=== PATIENT | male | born 1955 | race Caucasian/White ===

== ENCOUNTER 2017-05-29 14:23 | Emergency (ER) | payer SELFPAY ==
[~2017-05-29] VITALS: Ht 171.4 cm; Wt 54.5 kg
[2017-05-29 14:24] VITALS: BP 126/77
== END 2017-05-29 17:53 | disposition left against medical advice (07) ==
LOC: M ED 14:23
DX: R10.9 Unspecified abdominal pain (principal); Z53.21 Procedure and treatment not carried out due to patient leaving prior to being seen by health care provider

== ENCOUNTER 2017-06-01 21:40 | Emergency (ER) | payer OTHER, SELFPAY ==
[~2017-06-01] VITALS: Ht 170.2 cm; Wt 56.8 kg
[2017-06-01] MEDS ORDERED: MORPHINE 4 MG/ML 1ML SYRINGE IV PRN (23:30)
[2017-06-01] MEDS ORDERED: ONDANSETRON 4MG/2ML VIAL (J2405) IV ONE (23:30)
[2017-06-01] MEDS ORDERED: NS 1,000 ML IV ONE (23:30)
[2017-06-02 00:17] LABS: BASO # 0.1 K/mm3 (0.0-0.2); BASO % 0.7 % (0.0-1.0); EOS # 0.2 K/mm3 (0.0-0.50); EOS % 2.2 % (0.0-3.0); LARGE UNSTAINED CELL # 0.2 K/mm3 (0.0-0.4); LARGE UNSTAINED CELL % 2.4 % (0.0-4.0); LYMPH # 2.9 K/mm3 (1.5-4.5); LYMPH % 32.6 % (24.0-44.0); MEAN CORPUSCULAR HEMOGLOBIN 35.2 pg (27.0-33.0); MEAN CORPUSCULAR HGB CONC 36.4 g/dl (32.0-36.5); MEAN CORPUSCULAR VOLUME 96.7 fl (80.0-96.0); MONO # 0.5 K/mm3 (0.0-0.8); MONO % 5.7 % (0.0-5.0); NEUTROPHILS % 56.3 % (36.0-66.0); PLATELET COUNT, AUTOMATED 215 k/mm3 (150-450); RED CELL DISTRIBUTION WIDTH 14.5 % (11.5-14.5); WHITE BLOOD COUNT 8.9 K/mm3 (4.0-10.0)
[2017-06-02 00:23] LABS: INR 0.94
[2017-06-02 00:54] LABS: ALBUMIN 3.2 GM/DL (3.2-5.2); ALKALINE PHOSPHATASE 92 U/L (45-117); ALT/SGPT 29 U/L (12-78); ANION GAP 7 MEQ/L (8-16); AST/SGOT 44 U/L (15-37); BILIRUBIN,DIRECT < 0.1 MG/DL (0.0-0.2); BILIRUBIN,TOTAL 0.2 MG/DL (0.2-1.0); BLOOD UREA NITROGEN 8 MG/DL (7-18); CALCIUM LEVEL 7.4 MG/DL (8.8-10.2); CARBON DIOXIDE LEVEL 29 MEQ/L (21-32); CHLORIDE LEVEL 108 MEQ/L (98-107); CREATININE FOR GFR 0.52 MG/DL (0.70-1.30); GLOMERULAR FILTRATION RATE > 60.0 (>49); GLUCOSE, FASTING 79 MG/DL (80-110); POTASSIUM SERUM 3.2 MEQ/L (3.5-5.1); SODIUM LEVEL 144 MEQ/L (136-145); TOTAL PROTEIN 6.1 GM/DL (6.4-8.2)
[2017-06-02] MEDS ORDERED: ISOVUE-370 76% 100ML VIAL (Q9967) As Ordered ONE (00:58)
--- NOTE | 2017-06-02 02:10 | REPUSA ---
CLINICAL HISTORY: Abdominal pain. TECHNIQUE: Multiple axial, sagittal and coronal CT images were obtained through the abdomen and pelvi s after administration of intravenous contrast material. COMMENTS: Diffuse thickening and enhancement of the stomach which is fluid filled. Diffuse thickening and enhancement of the small bowels which are fluid-filled. Diffuse thickening and enhancement of the colon which is fluid-filled. The liver is of uniform attenuation without mass or defect. There is no intra or extrahepatic biliary ductal dilatation. The spleen is normal. The gallbladder is within normal limits. The pancreas is of normal contour and attenuation characteristics. There is no evidence of adrenal mass. Both kidneys demonstrate prompt and equal nephrograms. The kidneys are normal in size, shape and conf iguration. There is no evidence of renal or ureteral mass. No renal or ureteral calculi are identifie d. There is no hydroureter or hydronephrosis. No evidence for appendicitis. No evidence for small or large bowel obstruction. There is no evidence of abdominal ascites or lympha denopathy. There is no evidence of intrinsic or extrinsic bladder mass. There is no pelvic ascites or lymphadeno vijaya. Distended bladder. Images of the lung bases show no evidence of pleural or parenchymal mass. There are no pleural effusi ons. The bony structures are free of lytic or blastic lesions. Multilevel degenerative changes are seen in volving the thoracolumbar spine. Scattered calcifications are seen involving the aorta and major branches compatible with atherosclero sis. IMPRESSION: Gastroenteritis. Colitis. Thank you for your kind referral of this patient.
[2017-06-02 04:50] VITALS: BP 150/85
[2017-06-02] MEDS ORDERED: PERC5TAB12 PO (05:08)
[2017-06-02] MEDS ORDERED: ZOFR4TAB3 PO (05:08)
[2017-06-02] MEDS ORDERED: OXYCODONE/APAP 5MG/325MG(BULK FOR ED) 1 TABLET PO ONE (05:15)
== END 2017-06-02 05:32 | disposition home or self-care (01) ==
LOC: M ED 21:40
DX: K52.9 Noninfective gastroenteritis and colitis, unspecified (principal); F17.200 Nicotine dependence, unspecified, uncomplicated; F10.10 Alcohol abuse, uncomplicated
CPT/HCPCS: 74177; 80048; 80076; 80320; 81001; 82550; 82553; 83605; 83690; 85025; 85610; 85730; 87040; 87077; 87086; 93041; 96374; 96375; 99285; J2405; Q9967

== ENCOUNTER 2018-02-23 18:50 | Emergency (ER) | payer OTHER ==
[2018-02-23] MEDS: NS 500 ML IV (19:15)
[2018-02-23 19:26] LABS: BASO # 0.1 10^3/uL (0.0-0.2); BASO % 0.7 % (0.0-1.0); EOS # 0.1 10^3/uL (0.0-0.50); EOS % 1.9 % (0.0-3.0); HEMATOCRIT 37.6 % (42.0-52.0); HEMOGLOBIN 13.1 g/dl (13.5-17.5); IMMATURE GRANULOCYTE % 0.1 % (0-3.0); LYMPH # 3.9 10^3/uL (1.5-4.5); LYMPH % 53.8 % (24.0-44.0); MEAN CORPUSCULAR HEMOGLOBIN 34.1 pg (27.0-33.0); MEAN CORPUSCULAR HGB CONC 34.8 g/dl (32.0-36.5); MEAN CORPUSCULAR VOLUME 97.9 fl (80.0-96.0); MONO # 0.8 10^3/uL (0.0-0.8); MONO % 10.3 % (0.0-5.0); NEUTROPHILS # 2.4 10^3/uL (1.8-7.7); NEUTROPHILS % 33.2 % (36.0-66.0); PLATELET COUNT, AUTOMATED 267 10^3/uL (150-450); RED BLOOD COUNT 3.84 10^6/uL (4.30-6.10); RED CELL DISTRIBUTION WIDTH 14.6 % (11.5-14.5); WHITE BLOOD COUNT 7.3 10^3/uL (4.0-10.0)
[2018-02-23 19:39] LABS: ANION GAP 12 MEQ/L (8-16); BLOOD UREA NITROGEN 12 MG/DL (7-18); CALCIUM LEVEL 7.6 MG/DL (8.8-10.2); CARBON DIOXIDE LEVEL 25 MEQ/L (21-32); CHLORIDE LEVEL 110 MEQ/L (98-107); CREATININE FOR GFR 0.74 MG/DL (0.70-1.30); ETHYL ALCOHOL (ETHANOL) 0.353 % (0.000-0.010); GLOMERULAR FILTRATION RATE > 60.0 (>49); GLUCOSE, FASTING 80 MG/DL (70-100); POTASSIUM SERUM 3.7 MEQ/L (3.5-5.1); SODIUM LEVEL 147 MEQ/L (136-145)
== END 2018-02-23 20:48 | disposition left against medical advice (07) ==
LOC: M ED 18:50
DX: F10.129 Alcohol abuse with intoxication, unspecified (principal); W19.XXXA Unspecified fall, initial encounter; Y92.410 Unspecified street and highway as the place of occurrence of the external cause; Y93.89 Activity, other specified; Y99.9 Unspecified external cause status; Z53.21 Procedure and treatment not carried out due to patient leaving prior to being seen by health care provider
CPT/HCPCS: 73564

== ENCOUNTER 2018-06-30 20:16 | Emergency (ER) | payer OTHER ==
[2018-06-30] MEDS: IBUPROFEN 400 MG TAB PO (20:48)
== END 2018-06-30 21:42 | disposition home or self-care (01) ==
LOC: M ED 20:16
DX: S90.121A Contusion of right lesser toe(s) without damage to nail, initial encounter (principal); W22.8XXA Striking against or struck by other objects, initial encounter; Y92.018 Other place in single-family (private) house as the place of occurrence of the external cause; F10.229 Alcohol dependence with intoxication, unspecified
CPT/HCPCS: 73630

== ENCOUNTER 2018-11-01 13:58 | Emergency (ER) | payer OTHER ==
[~2018-11-01] VITALS: Ht 170.2 cm; Wt 55.0 kg
[~2018-11-01 13:58] MED LIST: PERC5TAB12 PO; ZOFR4TAB14 PO
[2018-11-01 14:29] LABS: BASO % 0.3 % (0.0-1.0); EOS # 0.1 10^3/uL (0.0-0.50); EOS % 1.1 % (0.0-3.0); HEMATOCRIT 40.8 % (42.0-52.0); HEMOGLOBIN 13.9 g/dl (13.5-17.5); LYMPH # 1.9 10^3/uL (1.5-4.5); LYMPH % 30.4 % (24.0-44.0); MEAN CORPUSCULAR HEMOGLOBIN 34.5 pg (27.0-33.0); MEAN CORPUSCULAR HGB CONC 34.1 g/dl (32.0-36.5); MEAN CORPUSCULAR VOLUME 101.2 fl (80.0-96.0); MONO # 0.7 10^3/uL (0.0-0.8); NEUTROPHILS # 3.5 10^3/uL (1.8-7.7); NEUTROPHILS % 56.9 % (36.0-66.0); PLATELET COUNT, AUTOMATED 258 10^3/uL (150-450); RED BLOOD COUNT 4.03 10^6/uL (4.30-6.10); WHITE BLOOD COUNT 6.2 10^3/uL (4.0-10.0)
--- NOTE | 2018-11-01 14:43 | REP ---
CT Head without contrast HISTORY: Infarction COMPARISON: 02/23/2018 Areas of decreased attenuation are present in the periventricular white matter. This represents small-vessel ischemic disease. There is no intraparenchymal hemorrhage, acute infarct, mass or midline shift. The ventricular system and cortical sulci as well as subarachnoid space in the posterior fossa are dilated consistent with minimal volume loss. There is no extra cerebral collection. There is no fracture. The visualized sinuses are clear. IMPRESSION: 1. Small vessel ischemic disease. 2. Minimal volume loss. Electronically Signed by Justino Martinez MD 11/01/2018 02:34 P
[2018-11-01 14:44] LABS: INR 0.94; PARTIAL THROMBOPLASTIN TIME 29.8 SECONDS (25.4-37.6); PROTHROMBIN TIME 12.7 SECONDS (12.1-14.4)
--- NOTE | 2018-11-01 14:46 | REP ---
Chest one-view HISTORY: Infarction Comparison: None The lungs are hyperinflated. Left apical pleural thickening is present. The right lung is clear. The heart is normal in size. The pulmonary vasculature is normal in appearance. There are old right rib fractures. Impression: No acute disease. Electronically Signed by Justino Martinez MD 11/01/2018 02:37 P
[2018-11-01 15:04] LABS: BLOOD UREA NITROGEN 7 MG/DL (7-18); CALCIUM LEVEL 8.3 MG/DL (8.8-10.2); CARBON DIOXIDE LEVEL 29 MEQ/L (21-32); CHLORIDE LEVEL 104 MEQ/L (98-107); CK-MB VALUE MASS < 1.0 NG/ML (<3.6); CPK CREATINE PHOSPHOKINASE 77 U/L (39-308); CREATININE FOR GFR 0.76 MG/DL (0.70-1.30); FREE T4 0.95 NG/DL (0.76-1.46); GLOMERULAR FILTRATION RATE > 60.0 (>49); GLUCOSE, FASTING 99 MG/DL (70-100); MAGNESIUM LEVEL 2.1 MG/DL (1.8-2.4); PHOSPHORUS LEVEL 2.9 MG/DL (2.5-4.9); POTASSIUM SERUM 3.3 MEQ/L (3.5-5.1); SODIUM LEVEL 138 MEQ/L (136-145); TROPONIN I < 0.02 NG/ML (< 0.10)
[2018-11-01] MEDS ORDERED: POTASSIUM CHLORIDE 10 MEQ SR TABLET PO ONE (15:30)
--- NOTE | 2018-11-01 17:44 | ECGEPIP ---
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
--- NOTE | 2018-11-01 18:02 | REPVR ---
EXAM: MR Head Without Contrast EXAM DATE/TIME: 11/01/2018 5:52 PM CLINICAL HISTORY: 63 years old, male; Signs and symptoms; Numbness / parasthesia; Right; Patient HX: RT side face and RT pinky numbness; Additional info: CVA TECHNIQUE: MR of the head without contrast. COMPARISON: CT Head without contrast 11/01/2018 2:18 PM FINDINGS: No abnormal restriction of diffusion to indicate acute CVA. Midline structures and cerebellar tonsillar position appear normal. Ventricles, cisterns and sulci are symmetrically prominent. No intracranial mass, midline shift or abnormal extra-axial fluid. No acute intracranial hemorrhage. Mild pattern of increased T2 and flair signal in supratentorial white matter. Optic chiasm and pituitary infundibulum appear normal. Normal vascular flow voids in major intracranial arteries and dural venous sinuses. Paranasal sinuses are clear. Mastoid air cells are normally aerated. Optic globes and orbits are unremarkable. IMPRESSION: No acute intracranial abnormality. Mild atrophy and mild presumed symmetric chronic microangiopathic supratentorial white matter change Electronically signed by: Randy Black On 11/01/2018 18:01:45 PM
--- NOTE | 2018-11-01 18:02 | REPVR ---
EXAM: MR Angiogram Head Without Contrast, Arteries EXAM DATE/TIME: 11/01/2018 5:52 PM CLINICAL HISTORY: 63 years old, male; Signs and symptoms; Numbness; Additional info: CVA TECHNIQUE: MR angiogram head without contrast. Exam focused on the arteries. MIP reconstructed images were created and reviewed. COMPARISON: CT Head without contrast 11/01/2018 2:18 PM FINDINGS: Anterior circulation: Normal flow signal and luminal caliber in the petrous, cavernous and supraclinoid internal carotid arteries. Normal appearance of the anterior cerebral artery branches and middle cerebral artery branches through the MCA trifurcations. No occlusion, high-grade focal stenosis or dissection. No aneurysm. Left A1 segment is diminutive and the normal left anterior cerebral artery is supplied predominantly by an anterior communicating artery Posterior circulation: Normal distal vertebral arteries, with patent normal caliber basilar artery, and normal superior cerebellar and posterior cerebral arteries. No occlusion, high-grade stenosis or aneurysm. IMPRESSION: Unremarkable MR angiogram of the [place] and intracranial vertebrobasilar system. No hemodynamically significant intracranial large vessel disease Electronically signed by: Randy Black On 11/01/2018 18:02:31 PM
[2018-11-01 18:18] VITALS: BP 145/78
== END 2018-11-01 18:34 | disposition home or self-care (01) ==
LOC: M ED 13:58
DX: R20.2 Paresthesia of skin (principal); I67.82 Cerebral ischemia; F17.200 Nicotine dependence, unspecified, uncomplicated

== ENCOUNTER 2018-12-07 17:50 | Emergency (ER) | payer OTHER ==
--- NOTE | 2018-12-07 18:27 | REP ---
Clinical: Trauma/fall. Comparison: 11/01/2018 . Findings: Age-related atrophy and microvascular ischemic changes are appreciated. The ventricles and sulci are symmetric. Garcia-white differentiation is maintained. There is no evidence for acute intracranial hemorrhage, mass/mass effect, pathology or infarction. No extra-axial fluid collection. Calvarium is intact. Paranasal sinuses and mastoid air cells are clear. Impression: Age related atrophy and microvascular ischemic changes. No acute intracranial hemorrhage, infarction, or mass/mass effect. Electronically Signed by Shar Carson MD 12/07/2018 06:18 P
--- NOTE | 2018-12-07 18:28 | REP ---
Clinical: Trauma/fall. Technique: Axial noncontrast images through the facial bones with coronal and sagittal re-formations. Findings: There is a scalp hematoma/contusion overlying the frontal bone. The osseous structures including bilateral zygomatic arches, mandible and temporomandibular joints appear intact and symmetric. No obvious acute fracture identified. The sinuses are well aerated and clear and without fluid levels to suggest occult injury. Mild angulation/deviation to the nasal bones and nasal septum appears chronic and without definite acute fracture although clinical correlation may be warranted. The bilateral orbits are symmetric, intact and normal. Impression: 1. Small scalp hematoma/contusion overlying the right frontal bone. 2. No obvious acute fracture or trauma/injury appreciated. 3. Subtle deviation of the nasal septum and nasal bones is likely chronic and without obvious acute fracture. Electronically Signed by Shar Carson MD 12/07/2018 06:20 P
--- NOTE | 2018-12-07 18:30 | REP ---
Clinical: Trauma/fall. Technique: Axial noncontrast images from the skull base to the thoracic inlet with coronal and sagittal re-formations. Findings: Alignment and lordosis maintained. No acute fracture / compression injury or subluxation is appreciated. Moderate/advanced multilevel degenerative disc osteophyte complexes are appreciated. The spinal canal is patent. The posterior elements and spinous processes are intact. The paravertebral soft tissues are within normal limits. Impression: Moderate/advanced multilevel degenerative changes. No acute fracture / compression injury or subluxation appreciated Electronically Signed by Shar Carson MD 12/07/2018 06:21 P
[2018-12-07] MEDS ORDERED: ZOLP10TA2 (18:47)
[2018-12-07] MEDS ORDERED: ESCI10TA2 (18:47)
[2018-12-07 19:46] VITALS: BP 114/63
== END 2018-12-07 19:47 | disposition home or self-care (01) ==
LOC: M ED 17:50 → EDBD 17:50 → M ED 19:47
DX: S01.91XA Laceration without foreign body of unspecified part of head, initial encounter (principal); S00.83XA Contusion of other part of head, initial encounter; F10.129 Alcohol abuse with intoxication, unspecified; W19.XXXA Unspecified fall, initial encounter; Y92.410 Unspecified street and highway as the place of occurrence of the external cause; Y93.9 Activity, unspecified; Y99.9 Unspecified external cause status; J34.2 Deviated nasal septum; M51.9 Unspecified thoracic, thoracolumbar and lumbosacral intervertebral disc disorder; Z72.0 Tobacco use; Z79.899 Other long term (current) drug therapy

== ENCOUNTER 2018-12-27 17:48 | Inpatient (IN) | payer OTHER ==
[~2018-12-27 17:48] MED LIST changes: +ESCI10TA2; +ZOLP10TA2
[2018-12-27] MEDS ORDERED: IPRATROPIUM 0.5MG/ALBUTEROL 2.5MG INH SOL UD 3ML (DUONEB)(J7620) NEB PRN (18:00)
[2018-12-27] MEDS ORDERED: dexameTHASONE 20 MG/5 ML VIAL (J1100) IV ONE (18:15)
--- NOTE | 2018-12-27 18:42 | REP ---
Portable chest, 06:27 p.m., single AP view, the patient is upright: Comparison is 11/01/2018. The lung farrar are clear. The cardiac size is normal. The caryn, mediastinum, and skeletal structures are unremarkable. Impression: Negative portable chest. There is no interval change. Electronically Signed by Iam Taylor MD 12/27/2018 06:34 P
[2018-12-27 19:03] LABS: BASO # 0.1 10^3/uL (0.0-0.2); BASO % 0.4 % (0.0-1.0); EOS % 0.2 % (0.0-3.0); HEMATOCRIT 36.5 % (42.0-52.0); HEMOGLOBIN 12.9 g/dl (13.5-17.5); LYMPH # 1.5 10^3/uL (1.5-4.5); LYMPH % 13.1 % (24.0-44.0); MEAN CORPUSCULAR HEMOGLOBIN 36.4 pg (27.0-33.0); MEAN CORPUSCULAR HGB CONC 35.3 g/dl (32.0-36.5); MEAN CORPUSCULAR VOLUME 103.1 fl (80.0-96.0); MONO # 1.3 10^3/uL (0.0-0.8); MONO % 11.8 % (0.0-5.0); NEUTROPHILS # 8.2 10^3/uL (1.8-7.7); NEUTROPHILS % 73.7 % (36.0-66.0); PLATELET COUNT, AUTOMATED 408 10^3/uL (150-450); RED BLOOD COUNT 3.54 10^6/uL (4.30-6.10); WHITE BLOOD COUNT 11.1 10^3/uL (4.0-10.0)
[2018-12-27 19:05] LABS: BLOOD UREA NITROGEN 13 MG/DL (7-18); CALCIUM LEVEL 8.3 MG/DL (8.8-10.2); CARBON DIOXIDE LEVEL 32 MEQ/L (21-32); CHLORIDE LEVEL 95 MEQ/L (98-107); CK-MB VALUE MASS < 1.0 NG/ML (<3.6); CPK CREATINE PHOSPHOKINASE 88 U/L (39-308); CREATININE FOR GFR 0.66 MG/DL (0.70-1.30); GLOMERULAR FILTRATION RATE > 60.0 (>49); GLUCOSE, FASTING 137 MG/DL (70-100); MB/CK RELATIVE INDEX 1.14 (< OR =4); POTASSIUM SERUM 3.7 MEQ/L (3.5-5.1); SODIUM LEVEL 135 MEQ/L (136-145); TROPONIN I < 0.02 NG/ML (< 0.10)
[2018-12-27] MEDS ORDERED: NS 500 ML IV ONE ×2 (20:00→21:00)
[2018-12-27] MEDS ORDERED: PIPERACILLIN/TAZOBACTAM SOD 3.375 GM in D5W MINI-BAG PLUS 50 ML IV ONE (20:30)
[2018-12-27] MEDS: ENOXAPARIN 40 MG/0.4 ML SYRINGE (J1650) SC SCH (21:00)
[2018-12-27] MEDS ORDERED: NS 1,000 ML IV ONE (21:00)
[2018-12-27] MEDS ORDERED: ESCI20TA PO (21:10)
[2018-12-27] MEDS ORDERED: cefTRIAXone SOD 1 GM in D5W MINI-BAG PLUS 50 ML IV SCH (23:00)
[2018-12-27] MEDS: NS 1,000 ML IV SCH (23:11)
--- NOTE | 2018-12-27 23:55 | HPEPDOC ---
General Date of Admission Dec 27, 2018 at 20:57 Chief Complaint The patient is a 63-year-old male admitted with a reason for visit of Sepsis. History of Present Illness 63-year-old male with past medical history of depression presents to the ER with a chief complaint of increased cough, shortness of breath over the last 5 days. The patient states that he has been feeling increasingly lethargic and tired with associated nonproductive cough. He also notes having subjective fevers at home. He denies any complaints of lightheadedness, dizziness, chest pain, palpitations, abdominal pain, orthopnea, PND, lower extremity swelling or any nausea/vomiting/diarrhea. In the ER, the patient was noted to be hypotensive and hypoxic requiring supplemental oxygen. In addition, lab work revealed leukocytosis and lactic acidosis. The patient will be admitted under the hospitalist service for further evaluation and management. Home Medications Scheduled Escitalopram Oxalate (Escitalopram Oxalate) 20 Mg Tablet, 20 MG PO DAILY, (Reported) Allergies Coded Allergies: No Known Allergies (Unverified , 06/30/18) Past Medical History Medical History As noted in HPI. Social History * Smoker: current smoker (has smoked 1 pack per day of tobacco for 50 years) Alcohol: occationally Drugs: denies Review of Systems Other systems 10 point review of systems negative unless otherwise specified in HPI. Physical Examination General Exam: Positive: Alert, Cooperative, Mild Distress (2/2 lethargy, weakness) ENT Exam: Positive: Atraumatic, Mucous membr. moist/pink Chest Exam: Positive: Diminished Heart Exam: Positive: Rate Normal, Normal S1, Normal S2 Abdomen Exam: Positive: Soft; Negative: Tenderness Extremity Exam: Negative: Tenderness, Swelling Psych Exam: Positive: Oriented x 3 Vital Signs Vital Signs Date Time Temp Pulse Resp B/P (MAP) Pulse Ox O2 Delivery O2 Flow Rate FiO2 12/27/18 23:00 66 119/60 (79) 93 Nasal Cannula 2.0 12/27/18 19:15 20 12/27/18 17:54 97.6 Laboratory Data Labs 24H Laboratory Tests 2 12/27/18 18:13: Immature Granulocyte % (Auto) 0.8, White Blood Count 11.1H, Red Blood Count 3.54L, Hemoglobin 12.9L, Hematocrit 36.5L, Mean Corpuscular Volume 103.1H, Mean Corpuscular Hemoglobin 36.4H, Mean Corpuscular Hemoglobin Concent 35.3, Red Cell Distribution Width 14.0, Platelet Count 408, Neutrophils (%) (Auto) 73.7H, Lymphocytes (%) (Auto) 13.1L, Monocytes (%) (Auto) 11.8H, Eosinophils (%) (Auto) 0.2, Basophils (%) (Auto) 0.4, Neutrophils # (Auto) 8.2H, Lymphocytes # (Auto) 1.5, Monocytes # (Auto) 1.3H, Eosinophils # (Auto) 0.0, Basophils # (Auto) 0.1, Nucleated Red Blood Cells % (auto) 0.0, Anion Gap 8, Glomerular Filtration Rate > 60.0, Lactic Acid Level 2.3*H, Blood Urea Nitrogen 13, Creatinine 0.66L, Sodium Level 135L, Potassium Level 3.7, Chloride Level 95L, Carbon Dioxide Level 32, Calcium Level 8.3L, Total Creatine Kinase 88, Creatine Kinase MB < 1.0, Creatine Kinase MB Relative Index 1.14, Troponin I < 0.02 CBC/BMP Laboratory Tests 12/27/18 18:13 Red Blood Count 3.54 L, Mean Corpuscular Volume 103.1 H, Mean Corpuscular Hemoglobin 36.4 H, Mean Corpuscular Hemoglobin Concent 35.3, Red Cell Distribution Width 14.0, Neutrophils (%) (Auto) 73.7 H, Lymphocytes (%) (Auto) 13.1 L, Monocytes (%) (Auto) 11.8 H, Eosinophils (%) (Auto) 0.2, Basophils (%) (Auto) 0.4, Neutrophils # (Auto) 8.2 H, Lymphocytes # (Auto) 1.5, Monocytes # (Auto) 1.3 H, Eosinophils # (Auto) 0.0, Basophils # (Auto) 0.1, Calcium Level 8.3 L, Total Creatine Kinase 88 Microbiology Microbiology 12/27/18 Blood Culture, Received Pending 12/27/18 Blood Culture, Received Pending Plan / VTE VTE Prophylaxis Ordered?: Yes Plan Plan SOB, Weakness 2/2 Community Acquired Pneumonia CXR with no acute findings--this may be secondary to the patient being dehydrated and hypotensive on arrival. Clinically the patient appears to have signs/symptoms suggestive of PNA We will order a respiratory panel, pro-calcitonin level, and sputum culture Rocephin and Zithro ordered We will cont to monitor the patient Hypotension 2/2 Above Improved with IVF Hydration Lactic Acidosis 2/2 Above IVF Hydration ordered We will repeat a LA level Leukocytosis 2/2 Above We will f/u with a WBC in the AM Hypoxia 2/2 Above We will downtitrate supplemental oxygen as tolerated Depression Cont Citalopram DVT prophylaxis Lovenox subcutaneous Dispo--PT ordered for functional optimization TOÑITO LARSEN MD Dec 27, 2018 23:55
[2018-12-28] MEDS ORDERED: AZITHROMYCIN INJ 500 MG, VIAL MATE ADAPTER 1 EACH in D5W 250 ML IV SCH ×3
[2018-12-28] MEDS: NS 1,000 ML IV SCH (06:15)
[2018-12-28 07:31] LABS: ALT/SGPT 12 U/L (12-78); BILIRUBIN,TOTAL 0.2 MG/DL (0.2-1.0); BLOOD UREA NITROGEN 10 MG/DL (7-18); CALCIUM LEVEL 7.5 MG/DL (8.8-10.2); CARBON DIOXIDE LEVEL 29 MEQ/L (21-32); CHLORIDE LEVEL 105 MEQ/L (98-107); GLOMERULAR FILTRATION RATE > 60.0 (>49); GLUCOSE, FASTING 114 MG/DL (70-100); MAGNESIUM LEVEL 1.9 MG/DL (1.8-2.4); POTASSIUM SERUM 3.7 MEQ/L (3.5-5.1); SODIUM LEVEL 140 MEQ/L (136-145); TOTAL PROTEIN 6.3 GM/DL (6.4-8.2)
[2018-12-28 08:30] LABS: HEMATOCRIT 32.8 % (42.0-52.0); MEAN CORPUSCULAR HEMOGLOBIN 34.3 pg (27.0-33.0); MEAN CORPUSCULAR VOLUME 102.2 fl (80.0-96.0); PLATELET COUNT, AUTOMATED 359 10^3/uL (150-450); RED BLOOD COUNT 3.21 10^6/uL (4.30-6.10); WHITE BLOOD COUNT 7.5 10^3/uL (4.0-10.0)
[2018-12-28] MEDS ORDERED: ESCITALOPRAM OXALATE 10 MG TAB (LEXAPRO) PO ONE (08:30)
[2018-12-28] MEDS ORDERED: LEVALBUTEROL 1.25 MG/0.5 ML CONCENTRATE NEB NEB ONE (08:30)
[2018-12-28 08:40] LABS: MEAN CORPUSCULAR HGB CONC 33.5 g/dl (32.0-36.5)
[2018-12-28] MEDS ORDERED: ESCITALOPRAM OXALATE 10 MG TAB (LEXAPRO) PO SCH (09:00)
[2018-12-28] MEDS: LEVALBUTEROL 1.25 MG/0.5 ML CONCENTRATE NEB INH PRN (09:33)
[2018-12-28 11:38] VITALS: BP 144/48
[2018-12-28] MEDS: LEVALBUTEROL 1.25 MG/0.5 ML CONCENTRATE NEB INH SCH ×3 (12:17→21:12)
[2018-12-28] MEDS ORDERED: OSELTAMIVIR PHOSPHATE 75 MG CAP (TAMIFLU) PO ONE (12:30)
--- NOTE | 2018-12-28 12:38 | IPNPDOC ---
Date Seen The patient was seen on 12/28/18. Progress Note SUBJECTIVE: Pt still c/o SOLIZ, wheezing, SOB, myalgias, and requesting something to eat and his lexapro to be given. He denies fever, chills. (+) influenza on tamiflu and droplet precautions. CXR lungs are clear, no infiltrate. ceftriaxone and azithro discontinued. OBJECTIVE: PHYSICAL EXAMINATION: VITALS: PLS SEE BELOW General Exam: Positive: Alert, Cooperative, Mild Distress (2/2 lethargy, weakness) ENT Exam: Positive: Atraumatic, Mucous membr. moist/pink Chest Exam: Positive: Diminished Heart Exam: Positive: Rate Normal, Normal S1, Normal S2 Abdomen Exam: Positive: Soft; Negative: Tenderness Extremity Exam: Negative: Tenderness, Swelling Psych Exam: Positive: Oriented x 3 LABORATORY DATA, IMAGING STUDIES, MICROBIOLOGY: REVIEWED, PLS SEE BELOW ASSESSMENT AND PLAN: 63-year-old male with past medical history of depression presents to the ER with a chief complaint of increased cough, shortness of breath over the last 5 days. The patient states that he has been feeling increasingly lethargic and tired with associated nonproductive cough. He also notes having subjective fevers at home. He denies any complaints of lightheadedness, dizziness, chest pain, palpitations, abdominal pain, orthopnea, PND, lower extremity swelling or any nausea/vomiting/diarrhea. In the ER, the patient was noted to be hypotensive and hypoxic requiring supplemental oxygen. In addition, lab work revealed leukocytosis and lactic acidosis. The patient will be admitted under the hospitalist service for further evaluation and management. Acute Respiratory distress due to Influenza s/p ceftriaxone and azithromycin CXR with no acute findings discontinue o2 if o2sat>88% Influenza droplet precautions tamiflu x 5days supportive care Hypotension , resolved Improved with IVF Hydration due to influenza Lactic Acidosis ,resolved s/p IVF Hydration Acute copd exacerbation significant wheezing on exam q4hrs nebs xopenex solumedrol s/p ceftriaxone azithromycin. Depression Cont Citalopram DVT prophylaxis Lovenox subcutaneous Dispo--PT ordered for functional optimization VS, I&O, 24H, Fishbone Vital Signs/I&O Vital Signs Date Time Temp Pulse Resp B/P (MAP) Pulse Ox O2 Delivery O2 Flow Rate FiO2 12/28/18 11:38 96.3 71 18 144/48 (80) 94 1.0 4/20/19 11:25 Room Air I&O- Last 24 Hours up to 6 AM 12/28/18 06:00 Intake Total 2715 ml Output Total 450 ml Balance 2265 ml Laboratory Data 24H LABS Laboratory Tests 2 12/27/18 18:13: Immature Granulocyte % (Auto) 0.8, White Blood Count 11.1H, Red Blood Count 3.54L, Hemoglobin 12.9L, Hematocrit 36.5L, Mean Corpuscular Volume 103.1H, Mean Corpuscular Hemoglobin 36.4H, Mean Corpuscular Hemoglobin Concent 35.3, Red Cell Distribution Width 14.0, Platelet Count 408, Neutrophils (%) (Auto) 73.7H, Lymphocytes (%) (Auto) 13.1L, Monocytes (%) (Auto) 11.8H, Eosinophils (%) (Auto) 0.2, Basophils (%) (Auto) 0.4, Neutrophils # (Auto) 8.2H, Lymphocytes # (Auto) 1.5, Monocytes # (Auto) 1.3H, Eosinophils # (Auto) 0.0, Basophils # (Auto) 0.1, Nucleated Red Blood Cells % (auto) 0.0, Anion Gap 8, Glomerular Filtration Rate > 60.0, Lactic Acid Level 2.3*H, Blood Urea Nitrogen 13, Creatinine 0.66L, Sodium Level 135L, Potassium Level 3.7, Chloride Level 95L, Carbon Dioxide Level 32, Calcium Level 8.3L, Total Creatine Kinase 88, Creatine Kinase MB < 1.0, Creatine Kinase MB Relative Index 1.14, Troponin I < 0.02 12/28/18 00:02: Lactic Acid Followup at 4 Hours 0.8 12/28/18 06:39: Nucleated Red Blood Cells % (auto) 0.0, Anion Gap 6L, Glomerular Filtration Rate > 60.0, Blood Urea Nitrogen 10, Creatinine 0.50L, Sodium Level 140, Potassium Level 3.7, Chloride Level 105, Carbon Dioxide Level 29, Calcium Level 7.5L, Aspartate Amino Transf (AST/SGOT) 9, Alanine Aminotransferase (ALT/SGPT) 12, Alkaline Phosphatase 52, Total Bilirubin 0.2, Total Protein 6.3L, Albumin 2.0L, Magnesium Level 1.9, Albumin/Globulin Ratio 0.47L CBC/BMP Laboratory Tests 12/27/18 18:13 Red Blood Count 3.54 L, Mean Corpuscular Volume 103.1 H, Mean Corpuscular Hemoglobin 36.4 H, Mean Corpuscular Hemoglobin Concent 35.3, Red Cell Distribut ion Width 14.0, Neutrophils (%) (Auto) 73.7 H, Lymphocytes (%) (Auto) 13.1 L, Monocytes (%) (Auto) 11.8 H, Eosinophils (%) (Auto) 0.2, Basophils (%) (Auto) 0.4, Neutrophils # (Auto) 8.2 H, Lymphocytes # (Auto) 1.5, Monocytes # (Auto) 1.3 H, Eosinophils # (Auto) 0.0, Basophils # (Auto) 0.1, Calcium Level 8.3 L, Total Creatine Kinase 88 12/28/18 06:39 Red Blood Count 3.21 L, Mean Corpuscular Volume 102.2 H, Mean Corpuscular Hemoglobin 34.3 H, Mean Corpuscular Hemoglobin Concent 33.5, Red Cell Distribution Width 13.9, Calcium Level 7.5 L, Aspartate Amino Transf (AST/SGOT) 9, Alanine Aminotransferase (ALT/SGPT) 12, Alkaline Phosphatase 52, Total Bilirubin 0.2, Total Protein 6.3 L, Albumin 2.0 L Microbiology Microbiology 12/27/18 Blood Culture, Received Pending 12/27/18 Blood Culture, Received Pending 12/28/18 Respiratory Virus Panel (PCR) ([facility]) - Final, Complete INFLUENZA A (no subtype) SAURABH JOHN MD Dec 28, 2018 12:38
[2018-12-28] MEDS: methylPREDNISolone INJ 125 MG/2 ML VIAL (J2930) IV SCH ×2 (12:47→21:17)
[2018-12-28 14:00] VITALS: BP 140/52
[2018-12-28] MEDS: OSELTAMIVIR PHOSPHATE 75 MG CAP (TAMIFLU) PO SCH (21:17)
[2018-12-28] MEDS: ENOXAPARIN 40 MG/0.4 ML SYRINGE (J1650) SC SCH (21:17)
[2018-12-28 22:00] VITALS: BP 108/65
[2018-12-29] MEDS: LEVALBUTEROL 1.25 MG/0.5 ML CONCENTRATE NEB INH SCH ×6 (02:21→20:10)
[2018-12-29] MEDS: methylPREDNISolone INJ 125 MG/2 ML VIAL (J2930) IV SCH ×3 (05:30→22:52)
[2018-12-29 06:00] VITALS: BP 156/80
[2018-12-29] MEDS ORDERED: IPRATROPIUM 0.02% SOLN 0.5MG/2.5 ML NEB INH PRN (07:00)
[2018-12-29 07:07] LABS: HEMATOCRIT 32.5 % (42.0-52.0); HEMOGLOBIN 11.4 g/dl (13.5-17.5); MEAN CORPUSCULAR HEMOGLOBIN 35.8 pg (27.0-33.0); MEAN CORPUSCULAR HGB CONC 35.1 g/dl (32.0-36.5); MEAN CORPUSCULAR VOLUME 102.2 fl (80.0-96.0); PLATELET COUNT, AUTOMATED 374 10^3/uL (150-450); RED BLOOD COUNT 3.18 10^6/uL (4.30-6.10); WHITE BLOOD COUNT 11.4 10^3/uL (4.0-10.0)
[2018-12-29 07:24] LABS: BLOOD UREA NITROGEN 9 MG/DL (7-18); CARBON DIOXIDE LEVEL 26 MEQ/L (21-32); CHLORIDE LEVEL 106 MEQ/L (98-107); CREATININE FOR GFR 0.54 MG/DL (0.70-1.30); GLOMERULAR FILTRATION RATE > 60.0 (>49); GLUCOSE, FASTING 136 MG/DL (70-100); POTASSIUM SERUM 3.8 MEQ/L (3.5-5.1); SODIUM LEVEL 140 MEQ/L (136-145)
[2018-12-29] MEDS: IPRATROPIUM 0.02% SOLN 0.5MG/2.5 ML NEB INH SCH ×4 (07:27→20:09)
[2018-12-29] MEDS: OSELTAMIVIR PHOSPHATE 75 MG CAP (TAMIFLU) PO SCH ×2 (08:36→22:52)
[2018-12-29] MEDS: ESCITALOPRAM OXALATE 10 MG TAB (LEXAPRO) PO SCH (08:36)
--- NOTE | 2018-12-29 13:11 | IPNPDOC ---
Date Seen The patient was seen on 12/29/18. Progress Note SUBJECTIVE: NO issues overnight. Pt feels that his anxiety may be contributing to his fear of increasinghis activity. He feels much better than yesterday but still c/o generalized weakness. Pt still c/o SOLIZ, wheezing, SOB, myalgias, and requesting something to eat and his lexapro to be given. He denies fever, chills. (+) influenza on tamiflu and droplet precautions. CXR lungs are clear, no infiltrate. ceftriaxone and azithro discontinued. OBJECTIVE: PHYSICAL EXAMINATION: VITALS: PLS SEE BELOW General Exam: Positive: Alert, Cooperative, Mild Distress (2/2 lethargy, weakness) ENT Exam: Positive: Atraumatic, Mucous membr. moist/pink Chest Exam: Positive: Diminished Heart Exam: Positive: Rate Normal, Normal S1, Normal S2 Abdomen Exam: Positive: Soft; Negative: Tenderness Extremity Exam: Negative: Tenderness, Swelling Psych Exam: Positive: Oriented x 3 LABORATORY DATA, IMAGING STUDIES, MICROBIOLOGY: REVIEWED, PLS SEE BELOW ASSESSMENT AND PLAN: 63-year-old male with past medical history of depression presents to the ER with a chief complaint of increased cough, shortness of breath over the last 5 days. The patient states that he has been feeling increasingly lethargic and tired with associated nonproductive cough. He also notes having subjective fevers at home. He denies any complaints of lightheadedness, dizziness, chest pain, palpitations, abdominal pain, orthopnea, PND, lower extremity swelling or any nausea/vomiting/diarrhea. In the ER, the patient was noted to be hypotensive and hypoxic requiring supplemental oxygen. In addition, lab work revealed leukocytosis and lactic acidosis. The patient will be admitted under the hospitalist service for further evaluation and management. Acute Respiratory distress due to Influenza s/p ceftriaxone and azithromycin CXR with no acute findings discontinue o2 if o2sat>88% Influenza droplet precautions tamiflu x 5days supportive care Hypotension , resolved Improved with IVF Hydration due to influenza Lactic Acidosis ,resolved s/p IVF Hydration Acute copd exacerbation significant wheezing on exam q4hrs nebs xopenex solumedrol s/p ceftriaxone azithromycin. Depression Cont Citalopram DVT prophylaxis Lovenox subcutaneous Dispo--PT ordered for functional optimization VS, I&O, 24H, Fishbone Vital Signs/I&O Vital Signs Date Time Temp Pulse Resp B/P (MAP) Pulse Ox O2 Delivery O2 Flow Rate FiO2 12/29/18 06:00 97.3 71 18 156/80 (105) 93 12/28/18 22:00 12/28/18 11:25 Room Air I&O- Last 24 Hours up to 6 AM 12/29/18 06:00 Intake Total 1850 ml Output Total 700 ml Balance 1150 ml Laboratory Data 24H LABS Laboratory Tests 2 12/29/18 06:26: Nucleated Red Blood Cells % (auto) 0.0, Anion Gap 8, Glomerular Filtration Rate > 60.0, Blood Urea Nitrogen 9, Creatinine 0.54L, Sodium Level 140, Potassium Level 3.8, Chloride Level 106, Carbon Dioxide Level 26, Calcium Level 8.0L CBC/BMP Laboratory Tests 12/29/18 06:26 Red Blood Count 3.18 L, Mean Corpuscular Volume 102.2 H, Mean Corpuscular Hemoglobin 35.8 H, Mean Corpuscular Hemoglobin Concent 35.1, Red Cell Distribution Width 13.9, Calcium Level 8.0 L Microbiology Microbiology 12/27/18 Blood Culture - Preliminary, Resulted No growth after 24 hours . All specim... 12/27/18 Blood Culture - Preliminary, Resulted No growth after 24 hours . All specim... 12/28/18 Respiratory Virus Panel (PCR) ([facility]) - Final, Complete INFLUENZA A (no subtype) SAURABH JOHN MD Dec 29, 2018 13:11
[2018-12-29 14:00] VITALS: BP 110/58
--- NOTE | 2018-12-29 20:30 | ECGEPIP ---
Stationary ECG Study 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
[2018-12-29 22:00] VITALS: BP 121/71
[2018-12-29] MEDS: ENOXAPARIN 40 MG/0.4 ML SYRINGE (J1650) SC SCH (22:52)
[2018-12-30] MEDS: IPRATROPIUM 0.02% SOLN 0.5MG/2.5 ML NEB INH SCH ×7 (00:24→23:58)
[2018-12-30] MEDS: LEVALBUTEROL 1.25 MG/0.5 ML CONCENTRATE NEB INH PRN (00:25)
[2018-12-30] MEDS: LEVALBUTEROL 1.25 MG/0.5 ML CONCENTRATE NEB INH SCH ×7 (00:25→23:58)
[2018-12-30 06:00] VITALS: BP 118/63
[2018-12-30] MEDS: methylPREDNISolone INJ 125 MG/2 ML VIAL (J2930) IV SCH (06:12)
[2018-12-30 06:28] LABS: HEMATOCRIT 31.7 % (42.0-52.0); HEMOGLOBIN 11.3 g/dl (13.5-17.5); MEAN CORPUSCULAR HEMOGLOBIN 37.3 pg (27.0-33.0); MEAN CORPUSCULAR HGB CONC 35.6 g/dl (32.0-36.5); MEAN CORPUSCULAR VOLUME 104.6 fl (80.0-96.0); PLATELET COUNT, AUTOMATED 375 10^3/uL (150-450); RED BLOOD COUNT 3.03 10^6/uL (4.30-6.10)
[2018-12-30 06:51] LABS: BLOOD UREA NITROGEN 10 MG/DL (7-18); CARBON DIOXIDE LEVEL 27 MEQ/L (21-32); CHLORIDE LEVEL 104 MEQ/L (98-107); GLOMERULAR FILTRATION RATE > 60.0 (>49); GLUCOSE, FASTING 169 MG/DL (70-100); POTASSIUM SERUM 3.6 MEQ/L (3.5-5.1); SODIUM LEVEL 138 MEQ/L (136-145)
[2018-12-30 08:00] VITALS: BP 110/61
[2018-12-30] MEDS: OSELTAMIVIR PHOSPHATE 75 MG CAP (TAMIFLU) PO SCH ×2 (10:19→23:51)
[2018-12-30] MEDS: ESCITALOPRAM OXALATE 10 MG TAB (LEXAPRO) PO SCH (10:19)
[2018-12-30 12:00] VITALS: BP 125/74
--- NOTE | 2018-12-30 12:36 | IPNPDOC ---
Date Seen The patient was seen on 12/30/18. Progress Note SUBJECTIVE: Awaiting PT evaluation. LOST iv site after patient showered. Pt feels that his anxiety may be contributing to his fear of increasing his activity. .Pt still c/o SOLIZ, wheezing, SOB, myalgias, and requesting something to eat and his lexapro to be given. He denies fever, chills. (+) influenza on tamiflu and droplet precautions. CXR lungs are clear, no infiltrate. ceftriaxone discontinued. azithro continued for anti-inflammatory effect OBJECTIVE: PHYSICAL EXAMINATION: VITALS: PLS SEE BELOW General Exam: Positive: Alert, Cooperative, Mild Distress (2/2 lethargy, weakness) ENT Exam: Positive: Atraumatic, Mucous membr. moist/pink Chest Exam: Positive: Diminished Heart Exam: Positive: Rate Normal, Normal S1, Normal S2 Abdomen Exam: Positive: Soft; Negative: Tenderness Extremity Exam: Negative: Tenderness, Swelling Psych Exam: Positive: Oriented x 3 LABORATORY DATA, IMAGING STUDIES, MICROBIOLOGY: REVIEWED, PLS SEE BELOW ASSESSMENT AND PLAN: 63-year-old male with past medical history of depression presents to the ER with a chief complaint of increased cough, shortness of breath over the last 5 days. The patient states that he has been feeling increasingly lethargic and tired with associated nonproductive cough. He also notes having subjective fevers at home. He denies any complaints of lightheadedness, dizziness, chest pain, palpitations, abdominal pain, orthopnea, PND, lower extremity swelling or any nausea/vomiting/diarrhea. In the ER, the patient was noted to be hypotensive and hypoxic requiring supplemental oxygen. In addition, lab work revealed leukocytosis and lactic acidosis. The patient will be admitted under the hospitalist service for further evaluation and management. Acute Respiratory distress due to Influenza s/p ceftriaxone azithro for anti-inflammatory effect CXR with no acute findings discontinue o2 if o2sat>88% Influenza droplet precautions tamiflu x 5days supportive care Hypotension , resolved Improved with IVF Hydration due to influenza Lactic Acidosis ,resolved s/p IVF Hydration Acute copd exacerbation significant wheezing on exam q4hrs nebs xopenex s/p solumedrol-lost iv sige 12/30/18 on po prednisone tid, taper in am s/p ceftriaxone azithromycin. Depression Cont Citalopram DVT prophylaxis Lovenox subcutaneous Dispo--PT ordered for functional optimization VS, I&O, 24H, Fishbone Vital Signs/I&O Vital Signs Date Time Temp Pulse Resp B/P (MAP) Pulse Ox O2 Delivery O2 Flow Rate FiO2 12/30/18 08:00 98.5 72 16 110/61 (77) 96 12/28/18 22:00 12/28/18 11:25 Room Air I&O- Last 24 Hours up to 6 AM 12/30/18 05:59 Intake Total 1020 ml Output Total 2200 ml Balance -1180 ml Laboratory Data 24H LABS Laboratory Tests 2 12/29/18 15:29: 12/30/18 06:03: Nucleated Red Blood Cells % (auto) 0.0, Anion Gap 7L, Glomerular Filtration Rate > 60.0, Blood Urea Nitrogen 10, Creatinine 0.70, Sodium Level 138, Potassium Level 3.6, Chloride Level 104, Carbon Dioxide Level 27, Calcium Level 8.0L CBC/BMP Laboratory Tests 12/30/18 06:03 Red Blood Count 3.03 L, Mean Corpuscular Volume 104.6 H, Mean Corpuscular Hemoglobin 37.3 H, Mean Corpuscular Hemoglobin Concent 35.6, Red Cell Distribution Width 14.4, Calcium Level 8.0 L Microbiology Microbiology 12/27/18 Blood Culture - Preliminary, Resulted No Growth after 48 hours. All Specime... 12/27/18 Blood Culture - Preliminary, Resulted No Growth after 48 hours. All Specime... 12/29/18 Gram Stain - Final, Complete 12/29/18 Sputum Culture - Final, Complete 12/28/18 Respiratory Virus Panel (PCR) ([facility]) - Final, Complete INFLUENZA A (no subtype) SAURABH JOHN MD Dec 30, 2018 11:08
[2018-12-30] MEDS ORDERED: AZITHROMYCIN 250 MG TAB PO ONE (12:45)
[2018-12-30 14:00] VITALS: BP 125/74
[2018-12-30] MEDS: predniSONE 20 MG TAB PO SCH ×2 (16:32→23:51)
[2018-12-30 22:00] VITALS: BP 117/59
[2018-12-30] MEDS: ENOXAPARIN 40 MG/0.4 ML SYRINGE (J1650) SC SCH (23:50)
[2018-12-31] MEDS: IPRATROPIUM 0.02% SOLN 0.5MG/2.5 ML NEB INH SCH ×2 (04:00→08:09)
[2018-12-31] MEDS: LEVALBUTEROL 1.25 MG/0.5 ML CONCENTRATE NEB INH SCH ×2 (04:00→08:08)
[2018-12-31 06:00] VITALS: BP 149/72
[2018-12-31 06:26] LABS: HEMATOCRIT 33.5 % (42.0-52.0); HEMOGLOBIN 11.5 g/dl (13.5-17.5); MEAN CORPUSCULAR HEMOGLOBIN 35.9 pg (27.0-33.0); MEAN CORPUSCULAR HGB CONC 34.3 g/dl (32.0-36.5); MEAN CORPUSCULAR VOLUME 104.7 fl (80.0-96.0); PLATELET COUNT, AUTOMATED 366 10^3/uL (150-450); WHITE BLOOD COUNT 10.1 10^3/uL (4.0-10.0)
[2018-12-31 06:57] LABS: BLOOD UREA NITROGEN 13 MG/DL (7-18); CARBON DIOXIDE LEVEL 28 MEQ/L (21-32); CHLORIDE LEVEL 103 MEQ/L (98-107); CREATININE FOR GFR 0.69 MG/DL (0.70-1.30); GLOMERULAR FILTRATION RATE > 60.0 (>49); GLUCOSE, FASTING 148 MG/DL (70-100); POTASSIUM SERUM 3.7 MEQ/L (3.5-5.1); SODIUM LEVEL 138 MEQ/L (136-145)
[2018-12-31] MEDS ORDERED: AZITHROMYCIN 250 MG TAB PO SCH (09:00)
[2018-12-31] MEDS: ESCITALOPRAM OXALATE 10 MG TAB (LEXAPRO) PO SCH (09:05)
[2018-12-31] MEDS: predniSONE 20 MG TAB PO SCH (09:05)
[2018-12-31] MEDS: OSELTAMIVIR PHOSPHATE 75 MG CAP (TAMIFLU) PO SCH (09:05)
[2018-12-31] MEDS ORDERED: AZIT-12 PO (09:43)
[2018-12-31] MEDS ORDERED: OSEL75CA2 PO (09:43)
[2018-12-31] MEDS ORDERED: VENTAER INH (09:43)
[2018-12-31] MEDS ORDERED: PRED10TA2 PO (09:43)
--- NOTE | 2018-12-31 19:54 | DSES ---
DATE OF ADMISSION: 12/27/2018 DATE OF DISCHARGE: 12/31/2018 DISCHARGE DIAGNOSES: 1. Acute respiratory distress secondary to influenza infection. 2. Influenza infection. 3. Hypertension. 4. Lactic acidosis. 5. Acute chronic obstructive pulmonary disease (COPD) exacerbation. 6. Depression. HOSPITALIZATION COURSE: The patient is a 63-year-old male who presented to [facility] on 12/27/2018 with complaint about increased shortness of breath and sputum production. THe patient was admitted under the hospitalist service. Empiric antibiotic was initiated for presumed pneumonia. Later, the patient was found to have positive influenza. The patient was started on Tamiflu. Antibiotic was discontinued. The patient received IV support during admission due to hypotension with lactic acidosis. Symptoms improved. With medical management, the patient continued to show significant improvement and the patient was able to wean off the oxygen. The patient's COPD exacerbation was also being treated with steroids and breathing treatments. On 12/31/2018, the patient was discharged home with recommendations to followup with primary care provider in 1 week. The patient is also recommended to establish with pulmonology with primary care provider referral. The patient has never been diagnosed with COPD prior to this admission. The patient has never had pulmonary function tests in the past. The patient understands that he needs to have pulmonary function tests in order to assess the severity due to confirmed diagnosis and assess the severity of the COPD. OBJECTIVE: VITAL SIGNS: Temperature is 98.5, pulse 71, respirations 15, blood pressure 148/72. Pulse oximetry is 98% on room air. LABORATORY DATA: WBC 10.1, hemoglobin 11.7, hematocrit 33.5, platelet count 356. Sodium is 138, potassium 3.7, chloride 103, carbon dioxide 28, BUN 13, creatinine 0.69, GFR greater than 60, fasting glucose 148, calcium 8. Microbiology: Respiratory panel showed positive for influenza A. Blood cultures from 12/27/2018 showed no growth after 72 hours times two sets. The patient's sputum culture on 12/29/2018 showed no growth. IMAGING STUDIES: Chest x-ray performed on 12/27/2018 showed negative portable chest x-ray. DISCHARGE MEDICATIONS: - Ventolin inhaler two puff inhalation every 4 to 6 hours as needed for wheezing - azithromycin 250 mg by mouth daily for 3 days - Tamiflu 75 mg by mouth twice a day for 2 days - prednisone taper - citalopram 20 mg by mouth daily DISCHARGE INSTRUCTIONS: Discontinue lines. Discharge home. Activity as tolerated. Diet as tolerated. The patient should followup with primary care provider in 1 week. The patient needs pulmonology referral by the primary care provider. The patient needs pulmonary function tests in order to assess severity of chronic obstructive pulmonary disease (COPD). Discharge condition is fair. Discharge took greater than 30 minutes.
[2019-01-02 00:06] LABS: BODY FLUID CULTURE Not Indicated (.); LEGIONELLA ANTIGEN URINE Negative (Negative); ORGANISM ID Not indicated. (.); SPECIMEN SOURCE Urine (.); URINE STREP PNEUMONIAE ANTIGEN Negative (Negative)
== END 2018-12-31 11:57 | disposition home or self-care (01) | DRG 113 ==
LOC: M ED 17:48 → EDBD 17:48 → M ED INP 20:57 → M MSPAV 12-28 11:38
PROVIDERS: ADMIT Internal Medicine; ATTEND Internal Medicine
DX: J10.1 Influenza due to other identified influenza virus with other respiratory manifestations (principal); E87.2 Acidosis; I95.9 Hypotension, unspecified; J44.1 Chronic obstructive pulmonary disease with (acute) exacerbation; F32.9 Major depressive disorder, single episode, unspecified; Z79.899 Other long term (current) drug therapy; D72.829 Elevated white blood cell count, unspecified; F17.200 Nicotine dependence, unspecified, uncomplicated

== ENCOUNTER → 2019-04-14 | Outpatient (REF) | payer OTHER ==
[~2019-04-14] MED LIST changes: +AZIT-12 PO; +ESCI20TA PO; +OMEP40CA2 PO; +OSEL75CA2 PO; +PRED10TA2 PO; +VENTAER INH
[2019-04-14 17:36] LABS: ALBUMIN 3.8 GM/DL (3.2-5.2); ALT/SGPT 24 U/L (12-78); BILIRUBIN,TOTAL 0.3 MG/DL (0.2-1.0); BLOOD UREA NITROGEN 8 MG/DL (7-18); CALCIUM LEVEL 8.9 MG/DL (8.8-10.2); CARBON DIOXIDE LEVEL 31 MEQ/L (21-32); CHLORIDE LEVEL 105 MEQ/L (98-107); CREATININE FOR GFR 0.66 MG/DL (0.70-1.30); GLOMERULAR FILTRATION RATE > 60.0 (>49); GLUCOSE, FASTING 92 MG/DL (70-100); POTASSIUM SERUM 4.5 MEQ/L (3.5-5.1); SODIUM LEVEL 142 MEQ/L (136-145); TOTAL PROTEIN 7.5 GM/DL (6.4-8.2)
[2019-04-14 17:47] LABS: BASO % 0.8 % (0.0-1.0); EOS # 0.1 10^3/uL (0.0-0.50); EOS % 1.2 % (0.0-3.0); HEMATOCRIT 41.6 % (42.0-52.0); HEMOGLOBIN 14.3 g/dl (13.5-17.5); LYMPH # 1.6 10^3/uL (1.5-4.5); LYMPH % 32.9 % (24.0-44.0); MEAN CORPUSCULAR HEMOGLOBIN 34.6 pg (27.0-33.0); MEAN CORPUSCULAR HGB CONC 34.4 g/dl (32.0-36.5); MEAN CORPUSCULAR VOLUME 100.7 fl (80.0-96.0); MONO # 0.6 10^3/uL (0.0-0.8); MONO % 13.2 % (0.0-5.0); NEUTROPHILS # 2.5 10^3/uL (1.8-7.7); NEUTROPHILS % 51.7 % (36.0-66.0); PLATELET COUNT, AUTOMATED 293 10^3/uL (150-450); RED BLOOD COUNT 4.13 10^6/uL (4.30-6.10); WHITE BLOOD COUNT 4.8 10^3/uL (4.0-10.0)
[2019-04-14 18:16] LABS: HEMOGLOBIN A1c 5.5 %
== END ==
LOC: M LAB REF 16:25
PROVIDERS: ATTEND Nurse Practitioner Family
DX: Z13.9 Encounter for screening, unspecified (principal)

== ENCOUNTER 2020-01-17 16:51 | Inpatient (IN) | payer OTHER ==
[~2020-01-17] VITALS: Ht 170.2 cm; Wt 49.2 kg
[~2020-01-17 16:51] MED LIST changes: -OMEP40CA2 PO; +OMEP40CA97 PO
[2020-01-17] MEDS: COMBIVENT RESPIMAT 100-20MCG INHALER 4GM INH SCH ×3 (17:09→18:22)
[2020-01-17] MEDS ORDERED: methylPREDNISolone INJ 125 MG/2 ML VIAL (J2930) IV ONE (17:15)
[2020-01-17] MEDS ORDERED: ACETAMINOPHEN TAB 650MG DOSE (2X325MG) PO ONE (17:30)
[2020-01-17 17:31] LABS: ABG BASE EXCESS 8.4 (-2.0-2.0); ABG O2 SATURATION 93.7 % (95.0-99.0); ABG PARTIAL PRESSURE CO2 35.9 mmHg (35.0-45.0); ABG PARTIAL PRESSURE O2 64.7 mmHg (75.0-100.0); ABG STANDARD HCO3 32.1 MEQ/L (22.0-26.0); ABG TOTAL CO2 32.1 MEQ/L (23.0-31.0); ABG pH (ARTERIAL) 7.554 UNITS (7.350-7.450)
[2020-01-17 17:52] LABS: HEMATOCRIT 39.2 % (42.0-52.0); HEMOGLOBIN 13.9 g/dl (13.5-17.5); MEAN CORPUSCULAR HEMOGLOBIN 34.2 pg (27.0-33.0); MEAN CORPUSCULAR HGB CONC 35.5 g/dl (32.0-36.5); MEAN CORPUSCULAR VOLUME 96.6 fl (80.0-96.0); PLATELET COUNT, AUTOMATED 305 10^3/uL (150-450); RED BLOOD COUNT 4.06 10^6/uL (4.30-6.10)
[2020-01-17 17:53] LABS: WHITE BLOOD COUNT 20.6 10^3/uL (4.0-10.0)
[2020-01-17 18:09] LABS: ATYPICAL LYMPH 7 % (0-5); LYMPHOCYTES 22 % (16-44); MONOCYTES 8 % (0-5); NEUTROPHILS 61 % (28-66); PLATELET ESTIMATE NORMAL (NORMAL)
[2020-01-17 18:42] LABS: ALBUMIN 2.5 GM/DL (3.2-5.2); ALT/SGPT 34 U/L (12-78); BILIRUBIN,DIRECT 0.3 MG/DL (0.0-0.2); BILIRUBIN,TOTAL 0.9 MG/DL (0.2-1.0); BLOOD UREA NITROGEN 9 MG/DL (7-18); CALCIUM LEVEL 7.4 MG/DL (8.8-10.2); CARBON DIOXIDE LEVEL 34 MEQ/L (21-32); CHLORIDE LEVEL 91 MEQ/L (98-107); CREATININE FOR GFR 0.62 MG/DL (0.70-1.30); GLOMERULAR FILTRATION RATE > 60.0 (>49); GLUCOSE, FASTING 116 MG/DL (70-100); POTASSIUM SERUM 2.9 MEQ/L (3.5-5.1); SODIUM LEVEL 133 MEQ/L (136-145); THYROID STIMULATING HORMONE 0.751 uIU/ML (0.358-3.740); TOTAL PROTEIN 6.4 GM/DL (6.4-8.2)
[2020-01-17] MEDS ORDERED: methylPREDNISolone INJ 125 MG/2 ML VIAL (J2930) IV STA (19:34)
--- NOTE | 2020-01-17 19:43 | HPEPDOC ---
[facility] Medical History & Physical Date of Admission January 17, 2020 Date of Service: January 17, 2020 Attending Physician: KAIDEN HOFFMANN MD History and Physical TIME OF SERVICE: 8:20 PM CHIEF COMPLAINT: Shortness of breath HISTORY OF PRESENT ILLNESS: This is a 64-year-old gentleman who came to the hospital because his neighbors called EMS. He's been having shortness of breath for about 2-3 days is worse w ith exertion and improved a little bit after he received meds in the ER. He is also complaining of dizziness when he stands up. His chronic dry cough has not changed. He denies having fevers, chills, chest pain, lower extremity edema, muscle aches, headaches, or blurry vision. REVIEW OF SYSTEMS: 12 point review of systems negative except as listed in HPI PAST MEDICAL/ SURGICAL HISTORY: COPD Newly diagnosed Osteoporosis hx of T3, T4, T5, T6, and T7 compression wedge fractures Remote hx of Depression Ankle surgery SOCIAL HISTORY: He smokes He drinks about a pint of alcohol a week and last drank about 3 weeks ago He denies recreational drug use FAMILY HISTORY: Unknown because he is adopted ALLERGIES: Please see below. HOME MEDICATIONS: Please see below. PHYSICAL EXAMINATION: Vital Signs Date Time Temp Pulse Resp B/P (MAP) Pulse Ox O2 Delivery O2 Flow Rate FiO2 01/17/20 16:59 100.8 103 25 122/75 88 Room Air 01/17/20 17:20 1.0 GEN: Slim build / well developed/ NAD INTEGUMENT: He doesn't have facial plethora HEENT:NCAT /he doesn't have pursed lip breathing /he has temporal wasting CVS: RRR/ NMRG/ radial and dorsalis pedis pulses intact / no lower extremity edema LUNGS: he is able to speak full sentences without stopping to take a breath / is not using accessory muscles / he has prominent expiratory wheezing ABDOMEN: soft & he doesn't grimacer with palpation NEURO: CN 2-12 are grossly intact / speech is not dysarthric PSYCH: alert and oriented to person place and time/ able to understand and follow all commands LABORATORY DATA: Blood Gas Bicarbonate Standard 32.1H, Arterial Blood pH 7.554H, Arterial Blood Partial Pressure CO2 35.9, Arterial Blood Partial Pressure O2 64.7L, Arterial Blood Total CO2 32.1H, Arterial Blood HCO3 31.0H, Arterial Blood Base Excess 8.4H, Arterial Blood Oxygen Saturation 93.7L 01/17/20 17:19: Neutrophils (%) (Auto) , Nucleated Red Blood Cells % (auto) 0.0, Neutrophils 61, Band Neutrophils 2, Lymphocytes (Manual) 22, Monocytes (Manual) 8H, Atypical Lymphocytes 7H, Red Blood Cell Morphology NORMAL, Platelet Estimate NORMAL, Anion Gap 8, Glomerular Filtration Rate > 60.0, Lactic Acid Level 2.1*H, Calcium Level 7.4L, Total Bilirubin 0.9, Direct Bilirubin 0.3H, Aspartate Amino Transf (AST/SGOT) 22, Alanine Aminotransferase (ALT/SGPT) 34, Alkaline Phosphatase 120H, Total Protein 6.4, Albumin 2.5L, Albumin/Globulin Ratio 0.64L, Thyroid Stimulating Hormone (TSH) 0.751, Coronavirus (COVID-19)(PCR) NEGATIVE IMAGING: CTA chest "IMPRESSION: 1. No pulmonary embolism. 2. Mild nonspecific ground- glass opacities in the right upper lobe, right middle lobe, right lower lobe, and left lower lobe. Imaging features can be seen with COVID-19 pneumonia, though are nonspecific and can occur with a variety of infectious and noninfectious processes. 3. Centrilobular emphysematous changes. " MICROBIOLOGY: 01/17/20 Blood Culture, Received Pending 01/17/20 Blood Culture, Received Pending 01/17/20 Respiratory Virus Panel (PCR) ([facility]) - Final, Complete ASSESSMENT: Mr. Ortiz is a 64-year-old with a history of COPD, and osteoporosis who is admitted for management of acute COPD of unclear cause. PLAN: 1. Acute COPD Trigger may be viral infection that is not captured on our respiratory panel (COVID and respiratory panel were negative), CT, or aspiration The CT scan showed ground glass opacities His PaO2 was low; I suspect that his c/o dizziness are likely due to hypoxia. He received one dose of Levofloxacin and solumedrol Plan: admit to PCU / supplemental O2 / continuous pulse oximetry / aspiration precautions / COPD diet / f/u trop / Dunebs Q6H, Albuterol Q1HP, Prednisone + PPI / will dc Levofloxacin because he hasn't had a change in sputum color OR volume / Tessalon Pearls / refer to [facility] for repeat PFTs and Pulmonary Rehab when ready for d/c 2. SIRS Cause TBD SIRS criterial include HR >90 / WBC >12 / RR > 20 He has non diabetic hyperglycemia The lactic acid >2 NEW2S Score = 6 points = medium risk Plan: telemetry / Sepsis protocol / trend lactic acid / no abx bc we don't have a source of infection / IVF/ /f/u blood cx / Acetaminophen PRN for fever 3. Multifactorial Hypokalemia Likely due to decreased PO intake and beta-adrenergic agonist (nebs) Plan: replete K with PO and IV supplements / f/u UK, Uosmol, plasma osmol to calculate the transtubular K gradient, if TTKG is >3 then the hypokalemia is may also bue due to renal K wasting which can be caused by low Mag 4. Primary respiratory Alkalosis 2/2 acute COPD with secondary Metabolic Alkalosis Plan: treat COPD / f/u Urine Cl, if the urine Cl >20, the then secondary metabolic alkalosis is likely chloride unresponsive due to the hypokalemia 5. Lactic acidosis Possibly due to hypoxia as a result of acute COPD and or neb treatments Plan: treat COPD / trend lactic acid / f/u blood cx 6. Pseudohypocalcemia Ca ++ corrected for low albumin is approx 8.6 7. Tobacco Abuse Plan: smoking cessation education / nicotine patch 8. Protein Calorie malnutrition His BMI is 16.2 It is possible that he has cachexia and muscle wasting due to advanced COPD or another undiagnosed chronic medical condition. 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
[2020-01-17] MEDS ORDERED: POTASSIUM CHLORIDE 10 MEQ SR TABLET PO ONE (19:45)
[2020-01-17] MEDS ORDERED: ALBUTEROL SULFATE 2.5 MG/0.5 ML INH NEB SOLN NEB PRN (19:45)
[2020-01-17] MEDS ORDERED: MAALOX 30 ML SUSP *UDC PO PRN (19:45)
[2020-01-17] MEDS ORDERED: ACETAMINOPHEN TAB 650MG DOSE (2X325MG) PO PRN (19:45)
[2020-01-17] MEDS ORDERED: ISOVUE-370 76% 100ML VIAL As Ordered ONE (19:47)
[2020-01-17] MEDS ORDERED: LevoFLOXacin IV 750 MG in IV 1 EA IV SCH (20:00)
[2020-01-17 20:02] LABS: MAGNESIUM LEVEL 2.2 MG/DL (1.8-2.4)
[2020-01-17 20:11] LABS: OSMOLALITY SERUM 272 MOSM/KG (280-301)
--- NOTE | 2020-01-17 20:17 | REPVR ---
PROCEDURE INFORMATION: Exam: CT Angiography Chest With Contrast Exam date and time: 01/17/2020 7:57 PM Age: 64 years old Clinical indication: Dyspnea; Additional info: Copd exacerbation of unclear cause / dyspnea TECHNIQUE: Imaging protocol: Computed tomographic angiography of the chest with intravenous contrast. 3D rendering: MIP and/or 3D reconstructed images were created by the technologist. Radiation optimization: All CT scans at this facility use at least one of these dose optimization techniques: automated exposure control; mA and/or kV adjustment per patient size (includes targeted exams where dose is matched to clinical indication); or iterative reconstruction. Contrast material: ISOVUE 370; Contrast volume: 75 ml; Contrast route: IV; COMPARISON: CR PORTABLE CHEST X-RAY 01/17/2020 5:12 PM (The report from this study was not available for review at the time of this interpretation.) FINDINGS: Pulmonary arteries: No pulmonary embolism. Great vessels off aortic arch: The brachiocephalic artery, imaged proximal portion of the left common carotid artery, and left subclavian artery are intact. No stenosis or occlusion of these vessels is noted. Aorta: The thoracic aorta is intact and patent. There is no thoracic aortic aneurysm, pseudoaneurysm, penetrating atherosclerotic ulcer, intramural hematoma, or dissection. There are mild atherosclerotic calcifications. Thyroid: Unremarkable. Tracheobronchial tree: Intact and patent. Lungs: There are centrilobular emphysematous changes, predominantly in the upper lobes. Mild nonspecific ground-glass opacities are present in the right upper lobe, right middle lobe, right lower lobe, and left lower lobe. There is no superimposed consolidation, interlobular septal thickening, or cavitation. There is scarring of the lung apices. Pleural space: Normal. No pneumothorax or pleural effusion. Heart: No cardiomegaly. The ratio of the diameter of the right ventricle to the diameter of the left ventricle measures less than 1, which is within normal limits and there is no evidence for a right ventricular strain. There is a trace amount of fluid in the pericardial sac. There are coronary artery calcifications. Mediastinum: No mediastinal mass, fluid collection, or pneumomediastinum. Lymph nodes: No enlarged lymph nodes. Spleen: Normal. No splenomegaly is noted. Incidental note is made of a small accessory spleen. Adrenals: Unremarkable. No adrenal mass is noted. Limited kidneys: There is a severely dilated left extrarenal pelvis. The kidneys were not fully imaged. Bones/joints: There are old healed fractures of the right anterior 2nd and 3rd ribs and right posterior 3rd and right right posterolateral 4th and 5th ribs. There are chronic appearing mild anterior wedge compression fractures of T3, T4, T5, T6, and T7. There is no radiolucent fracture line, cortical step-off, or retropulsion of the cortex. The bones have a demineralized appearance. No suspicious osteolytic or osteoblastic lesion is noted. There are no bony destructive changes. Soft tissues: Unremarkable. IMPRESSION: 1. No pulmonary embolism. 2. Mild nonspecific ground-glass opacities in the right upper lobe, right middle lobe, right lower lobe, and left lower lobe. Imaging features can be seen with COVID-19 pneumonia, though are nonspecific and can occur with a variety of infectious and noninfectious processes. 3. Centrilobular emphysematous changes. REFERENCES: Venkat Robin et al., Radiological Society of [place] Expert Consensus Statement on Reporting Chest CT Findings Related to COVID-19. Endorsed by the Society of Thoracic Radiology, the [place] [employer], and RSNA. Published December 03, 2019. Electronically signed by: Benson Jovel On 01/17/2020 20:17:28 PM
[2020-01-17 21:00] VITALS: O2SAT 95
[2020-01-17] MEDS: DOCUSATE SODIUM 100 MG CAP PO SCH (21:00)
[2020-01-17] MEDS ORDERED: BENZONATATE 100 MG CAP PO PRN (21:00)
[2020-01-17 21:20] VITALS: BP 127/65
[2020-01-17 22:00] VITALS: O2SAT 90
[2020-01-17] MEDS: POTASSIUM CHLORIDE INJ 40 MEQ in LR 1,000 ML IV SCH (22:41)
[2020-01-17] MEDS: NICOTINE 7 MG/24 HR TRANSDERMAL TD SCH (22:42)
[2020-01-17 23:00] VITALS: O2SAT 93
[2020-01-18] VITALS (25 sets, daily range): BP systolic 90–131; BP diastolic 56–73; O2SAT 86–99
[2020-01-18] MEDS: IPRATROPIUM 0.5MG/ALBUTEROL 2.5MG INH SOL UD 3ML (DUONEB)(J7620) NEB SCH ×4 (01:38→20:11)
[2020-01-18 01:52] LABS: POTASSIUM SERUM 3.1 MEQ/L (3.5-5.1); TROPONIN I < 0.02 NG/ML (< 0.10)
[2020-01-18 02:43] LABS: POTASSIUM RANDOM URINE 20.3 MEQ/L
[2020-01-18 05:36] LABS: HEMATOCRIT 36.1 % (42.0-52.0); HEMOGLOBIN 12.5 g/dl (13.5-17.5); MEAN CORPUSCULAR HEMOGLOBIN 34.1 pg (27.0-33.0); MEAN CORPUSCULAR HGB CONC 34.6 g/dl (32.0-36.5); MEAN CORPUSCULAR VOLUME 98.4 fl (80.0-96.0); PLATELET COUNT, AUTOMATED 292 10^3/uL (150-450); RED BLOOD COUNT 3.67 10^6/uL (4.30-6.10); WHITE BLOOD COUNT 10.9 10^3/uL (4.0-10.0)
[2020-01-18 06:02] LABS: BLOOD UREA NITROGEN 10 MG/DL (7-18); CALCIUM LEVEL 7.4 MG/DL (8.8-10.2); CARBON DIOXIDE LEVEL 36 MEQ/L (21-32); CHLORIDE LEVEL 96 MEQ/L (98-107); CREATININE FOR GFR 0.62 MG/DL (0.70-1.30); GLOMERULAR FILTRATION RATE > 60.0 (>49); GLUCOSE, FASTING 159 MG/DL (70-100); MAGNESIUM LEVEL 2.2 MG/DL (1.8-2.4); POTASSIUM SERUM 3.5 MEQ/L (3.5-5.1); SODIUM LEVEL 139 MEQ/L (136-145)
[2020-01-18] MEDS: predniSONE 20 MG TAB PO SCH (08:05)
[2020-01-18] MEDS: DOCUSATE SODIUM 100 MG CAP PO SCH ×2 (08:05→20:59)
[2020-01-18] MEDS: PANTOPRAZOLE 40MG TAB (PROTONIX) PO SCH (08:05)
--- NOTE | 2020-01-18 08:33 | REP ---
CHEST PORTABLE: REASON: Cough and dyspnea. COMPARISON: 12/27/2018 FINDINGS: The technique utilized in obtaining the radiograph has magnified the cardiac silhouette and accentuated the interstitial markings. The superior mediastinal structures are midline. The cardiac silhouette is unremarkable in size, shape, and position. The diaphragmatic surfaces of the lungs are regular, and the costophrenic angles are clear. The pulmonary farrar are clear. The imaged osseous structures are intact. IMPRESSION: There is no acute cardiopulmonary disease. No change from the prior exam. Electronically Signed by Riley Stout DO 01/18/2020 08:40 A
[2020-01-18] MEDS ORDERED: AZITHROMYCIN 250MG TABLET PO SCH (09:00)
[2020-01-18 10:31] LABS: HEMOGLOBIN A1c 6.1 %
--- NOTE | 2020-01-18 11:17 | ECGEPIP ---
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
[2020-01-18] MEDS: POTASSIUM CHLORIDE INJ 40 MEQ in LR 1,000 ML IV SCH ×2 (13:23→23:58)
--- NOTE | 2020-01-18 14:04 | IPNPDOC ---
Text Note Date of Service The patient was seen on 01/18/20. NOTE Addendum Called about Positive blood cultures at 1405; Discussed with laboratory - currently only 1 positive, 2nd bottle pending - on admission patient had SIRS / Temperature of 100.8 - Will repeat blood cultures x2 sets - Will check CRP / ESR / Transthoracic ECHO - Will check procalcitonin - Will start broad coverage with Vanco / Zosyn; if above workup remains negative will de-escalate antibiotic therapy Subjective: Patient is a 64-year-old male with a PMHx of COPD, Osteoporosis (Hx of T3, T4, T5, T6, and T7 compression wedge fractures) who presented to the hospital with worsening shortness of breath over the last 2-3 days. Patient has reported that over the last 2 years. She has stopped taking his medications as he has felt they were not helpful. Patient reports she is of breath, wheezing and was admitted to hospitalist service for further evaluation and treatment. Patient was seen and examined at the bedside. Patient reports that her breathing has improved from the point arrival, he denies chest pain or palpitations. Denies any significant change in his baseline cough. Reports that his wheezing has improved. Denies nausea, vomiting, abdominal pain, diarrhea or urinary discomfort. Objective: Vitals (See below) General: Lying in bed, no acute distress, comfortable, AAOx3 HEENT: NC, AT CVS: +S1S2 Lungs: Fair air entry b/l, faint wheezing bilaterally. No evidence of rhonchi or crackles Abdomen: Soft, non-distended, non-tender Extremities: - Edema, - Calf tenderness Assessment and plan: Acute COPD - Presented with worsening SOB associated with wheezing; clinically improved - Physical with improved aeration - Respirator panel negative / COVID19 negative - Blood cultures 01/16: - CT chest 01/17: 1. No pulmonary embolism. 2. Mild nonspecific ground-glass opacities in the right upper lobe, right middle lobe, right lower lobe, and left lower lobe. Imaging features can be seen with COVID-19 pneumonia, though are nonspecific and can occur with a variety of infectious and noninfectious processes. 3. Centrilobular emphysematous changes. - s/p Levofloxacin and Solumedrol in ER - Will start Azithromycin for immunomodulatory effect - c/w Prednisone and inhaled therapy as ordered - Patient will likely require continuous oxygen as an outpatient and outpatient pulmonology referral s/p Multifactorial Hypokalemia - Potassium continues to improve Primary respiratory alkalosis 2/2 acute COPD with secondary Metabolic Alkalosis Lactic acidosis - possibly 2/2 work of breathing / hypoxia - Remains afebrile / Hemodynamically stable - c/w Fluids Pseudo-hypocalcemia - Corrected calcium normal Tobacco Abuse - Patient has been strongly advised about smoking cessation education - c/w nicotine patch Protein Calorie malnutrition - BMI of 16.2 - Possibly 2/2 advanced COPD or another undiagnosed chronic medical condition. - Will need outpatient follow up with dietitian / nutrition GI prophylaxis - c/w Protonix DVT prophylaxis - c/w Lovenox Disposition: - c/w Observation status VS,Elisa, I+O VS, Elisa, I+O Laboratory Tests 01/17/20 17:19 01/18/20 01:16 01/18/20 05:03 Vital Signs Date Time Temp Pulse Resp B/P (MAP) Pulse Ox O2 Delivery O2 Flow Rate FiO2 01/18/20 12:00 2.0 01/18/20 12:00 91 Nasal Cannula 01/18/20 11:52 97.3 77 20 111/66 (81) I&O- Last 24 Hours up to 6 AM 01/18/20 06:00 Intake Total 570 ml Output Total 200 ml Balance 370 ml KEITH SALINAS MD January 18, 2020 14:04
[2020-01-18] MEDS: PIPERACILLIN/TAZOBACTAM SOD 3.375 GM in D5W MINI-BAG PLUS 50 ML IV SCH ×2 (15:27→20:59)
[2020-01-18] MEDS ORDERED: VANCOMYCIN HCL 1,000 MG, VIAL MATE ADAPTER 1 EACH in D5W 250 ML IV ONE (16:00)
[2020-01-18] MEDS: NICOTINE 7 MG/24 HR TRANSDERMAL TD SCH (20:58)
[2020-01-18] MEDS ORDERED: ENOXAPARIN 40MG/0.4ML SYRINGE (J1650 PER 10MG) SC SCH (21:00)
[2020-01-18] MEDS ORDERED: VANCOMYCIN HCL 750 MG, VIAL MATE ADAPTER 1 EACH in D5W 250 ML IV SCH (22:00)
[2020-01-19] VITALS (12 sets, daily range): BP systolic 101–147; BP diastolic 62–73; O2SAT 93–99
[2020-01-19] MEDS: IPRATROPIUM 0.5MG/ALBUTEROL 2.5MG INH SOL UD 3ML (DUONEB)(J7620) NEB SCH ×2 (02:09→07:40)
[2020-01-19] MEDS: PIPERACILLIN/TAZOBACTAM SOD 3.375 GM in D5W MINI-BAG PLUS 50 ML IV SCH (04:08)
[2020-01-19] MEDS ORDERED: LevoFLOXacin 500 MG TABLET PO SCH (06:00)
[2020-01-19 07:52] LABS: BASO % 0.3 % (0.0-1.0); HEMATOCRIT 32.5 % (42.0-52.0); HEMOGLOBIN 11.1 g/dl (13.5-17.5); LYMPH # 3.9 10^3/uL (1.5-5.0); MEAN CORPUSCULAR HEMOGLOBIN 34.3 pg (27.0-33.0); MEAN CORPUSCULAR HGB CONC 34.2 g/dl (32.0-36.5); MEAN CORPUSCULAR VOLUME 100.3 fl (80.0-96.0); MONO % 6.4 % (0.0-5.0); NEUTROPHILS # 10.5 10^3/uL (1.5-8.5); NEUTROPHILS % 67.8 % (36.0-66.0); PLATELET COUNT, AUTOMATED 331 10^3/uL (150-450); RED BLOOD COUNT 3.24 10^6/uL (4.30-6.10); WHITE BLOOD COUNT 15.4 10^3/uL (4.0-10.0)
[2020-01-19 08:00] LABS: BLOOD UREA NITROGEN 8 MG/DL (7-18); CALCIUM LEVEL 7.4 MG/DL (8.8-10.2); CARBON DIOXIDE LEVEL 29 MEQ/L (21-32); CHLORIDE LEVEL 106 MEQ/L (98-107); CREATININE FOR GFR 0.58 MG/DL (0.70-1.30); GLOMERULAR FILTRATION RATE > 60.0 (>49); GLUCOSE, FASTING 105 MG/DL (70-100); MAGNESIUM LEVEL 2.1 MG/DL (1.8-2.4); POTASSIUM SERUM 3.3 MEQ/L (3.5-5.1); SODIUM LEVEL 142 MEQ/L (136-145)
[2020-01-19] MEDS: PANTOPRAZOLE 40MG TAB (PROTONIX) PO SCH (08:46)
[2020-01-19] MEDS: DOCUSATE SODIUM 100 MG CAP PO SCH (08:46)
[2020-01-19] MEDS: predniSONE 20 MG TAB PO SCH (08:47)
[2020-01-19] MEDS ORDERED: ADVAIR HFA 230/21MCG INHALER INH SCH (09:00)
[2020-01-19] MEDS ORDERED: LEVA1TAB2 PO (10:50)
[2020-01-19] MEDS ORDERED: NICO7PA TD (10:50)
[2020-01-19] MEDS ORDERED: PRED10TA2 PO (10:50)
[2020-01-19] MEDS ORDERED: DOCU100C16 PO (10:50)
[2020-01-19] MEDS ORDERED: COMBAER6 INH (10:50)
[2020-01-19] MEDS ORDERED: ALBU83IN NEB (10:50)
[2020-01-19] MEDS ORDERED: VENTAER INH (10:50)
[2020-01-19] MEDS ORDERED: PANT40TA3 PO (10:50)
[2020-01-19] MEDS ORDERED: [UNRECOGNIZED DRUG - CODE] XX (10:50)
--- NOTE | 2020-01-19 11:43 | DS.PDOC ---
Discharge Summary General Date of Admission January 17, 2020 at 19:34 Date of Discharge 01/19/2020 Discharge Summary PROCEDURES PERFORMED DURING STAY: [None]. ADMITTING DIAGNOSES / DISCHARGE DIAGNOSES: Acute COPD - likely 2/2 significant history of smoking and no medication compliance for 2 years s/p Multifactorial Hypokalemia Primary respiratory alkalosis 2/2 acute COPD with secondary Metabolic Alkalosis Positive blood cultures (1 of 2 bottles) - likely 2/2 contaminant Lactic acidosis - possibly 2/2 work of breathing / hypoxia Pseudo-hypocalcemia Tobacco Abuse Protein Calorie malnutrition GI prophylaxis DVT prophylaxis COMPLICATIONS/CHIEF COMPLAINT: Shortness of breath HISTORY OF PRESENT ILLNESS: Patient is a 64-year-old male with a PMHx of COPD, Osteoporosis (Hx of T3, T4, T5, T6, and T7 compression wedge fractures) who presented to the hospital with worsening shortness of breath over the last 2-3 days. Patient has reported that over the last 2 years. She has stopped taking his medications as he has felt they were not helpful. Patient reports she is of breath, wheezing and was admitted to hospitalist service for further evaluation and treatment. HOSPITAL COURSE: Acute COPD - likely 2/2 significant history of smoking and no medication compliance for 2 years - Clinically patient reports improvement in his breathing, has been taken off supplemental oxygen and tolerating ambulation - Physical with no wheezing - Respirator panel negative / COVID19 negative - CT chest 01/17: 1. No pulmonary embolism. 2. Mild nonspecific ground-glass opacities in the right upper lobe, right middle lobe, right lower lobe, and left lower lobe. Imaging features can be seen with COVID-19 pneumonia, though are nonspecific and can occur with a variety of infectious and noninfectious proc esses. 3. Centrilobular emphysematous changes. - s/p Levofloxacin and Solumedrol in ER - c/w Prednisone and inhaled therapy as ordered; will provide taper on discharge - Will provide patient with nebulizer device, albuterol vials, rescue inhaler, Combivent on discharge - Patient was cleared by PT and did not require oxygen on discharge - Will have outpatient follow up with PCP and will provide pulmonology referral s/p Multifactorial Hypokalemia - Potassium continues to improve Primary respiratory alkalosis 2/2 acute COPD with secondary Metabolic Alkalosis Positive blood cultures (1 of 2 bottles) - likely 2/2 contaminant - Discussed with microbiology 01/18 AM; growth of coagulase negative staph - Will DC broad spectrum antibiotics; c/w Levofloxacin (re: COPD short course) Lactic acidosis - possibly 2/2 work of breathing / hypoxia - Remains afebrile / Hemodynamically stable - Unlikely 2/2 infection - c/w Fluids Pseudo-hypocalcemia - Corrected calcium normal Tobacco Abuse - Patient has been strongly advised about smoking cessation education - c/w nicotine patch Protein Calorie malnutrition - BMI of 16.2 - Possibly 2/2 advanced COPD or another undiagnosed chronic medical condition. - Will need outpatient follow up with dietitian / nutrition GI prophylaxis - c/w Protonix DVT prophylaxis - c/w Lovenox DISCHARGE MEDICATIONS: Please see below. ALLERGIES: Please see below. PHYSICAL EXAMINATION ON DISCHARGE: Vitals (See below) General: Sitting up in chair, appears comfortable, AAOx3 HEENT: NC, AT CVS: +S1S2 Lungs: Air entry is fair bilaterally, there does not appear to be any appreciable wheezing / rhonchi or crackles Abdomen: Remains soft, non-distended, non-tender Extremities: No evidence of LE edema, - Calf tenderness LABORATORY DATA: Please see below. ACTIVITY: [As tolerated]. DISCHARGE PLAN: Home with services DISPOSITION: Home DISCHARGE CONDITION: [Stable]. TIME SPENT ON DISCHARGE: 35 minutes Vital Signs/I&Os Vital Signs Date Time Temp Pulse Resp B/P (MAP) Pulse Ox O2 Delivery O2 Flow Rate FiO2 01/19/20 08:00 97.8 92 20 147/73 (97) 95 Nasal Cannula 2.0 I&O- Last 24 Hours up to 6 AM 01/19/20 06:00 Intake Total 2350 ml Output Total 1900 ml Balance 450 ml Laboratory Data Labs 24H Laboratory Tests 2 01/18/20 14:10: Erythrocyte Sedimentation Rate 45H, Lactic Acid Level 4.0*H, C-Reactive Protein, Quantitative 15.80H 01/18/20 19:09: Lactic Acid Followup at 4 Hours 4.9*H 01/18/20 19:34: Urine Color YELLOW, Urine Appearance CLEAR, Urine pH 6.0, Urine Specific [place] 1.026, Urine Protein NEGATIVE, Urine Glucose (UA) 1+H, Urine Ketones NEGATIVE, Urine Blood NEGATIVE, Urine Nitrite NEGATIVE, Urine Bilirubin NEGATIVE, Urine Urobilinogen 4.0H, Urine Leukocyte Esterase NEGATIVE, Urine WBC (Auto) 1, Urine RBC (Auto) 1, Urine Hyaline Casts (Auto) 0, Urine Bacteria (Auto) NEGATIVE, Urine Squamous Epithelial Cells 0, Urine Sperm (Auto) 01/19/20 00:01: Lactic Acid Level 2.5*H 01/19/20 04:43: Immature Granulocyte % (Auto) 0.5, Neutrophils (%) (Auto) 67.8H, Lymphocytes (%) (Auto) 25.0, Monocytes (%) (Auto) 6.4H, Eosinophils (%) (Auto) 0.0, Basophils (%) (Auto) 0.3, Neutrophils # (Auto) 10.5H, Lymphocytes # (Auto) 3.9, Monocytes # (Auto) 1.0H, Eosinophils # (Auto) 0.0, Basophils # (Auto) 0.0, Nucleated Red Blood Cells % (auto) 0.0, Anion Gap 7L, Glomerular Filtration Rate > 60.0, Lactic Acid Level 3.0*H, Calcium Level 7.4L, Magnesium Level 2.1, C-Reactive Protein, Quantitative 8.40H 01/19/20 09:17: Lactic Acid Followup at 4 Hours 4.3*H CBC/BMP Laboratory Tests 01/19/20 04:43 Microbiology Microbiology 01/18/20 Blood Culture, Received Pending 01/18/20 Blood Culture, Received Pending 01/17/20 Blood Culture - Preliminary, Resulted No growth after 24 hours . All specim... 01/17/20 Blood Culture - Preliminary, Resulted 01/17/20 Respiratory Virus Panel (PCR) ([facility]) - Final, Complete Discharge Medications Scheduled Docusate Sodium (Docusate Sodium) 100 Mg Capsule, 100 MG PO BID Ipratropium/Albuterol Sulfate (Combivent Respimat 20-100 Mcg) 4 Gm Mist.inhal, 2 PUFF INH TID Levofloxacin (Levaquin) 500 Mg Tablet, 500 MG PO DAILY@06 Nicotine (Nicotine Patch) 7 Mg Patch.td24, 1 PATCH TD QHS Pantoprazole Sodium (Pantoprazole Sodium) 40 Mg Tablet.dr, 40 MG PO DAILY Prednisone (Prednisone) 10 Mg Tablet, 10 MG PO TAPER Take 4 tabs daily x 3 days, then 3 tabs daily x 3 days, then 2 tabs daily x 3 days, then 1 tab daily x 3 days and stop Scheduled PRN Albuterol Sulf (Albuterol Sulfate) 2.5 Mg/3 Ml Vial.neb, 1 VIAL NEB Q4HP PRN for wheezing Albuterol Sulfate (Ventolin Hfa) 18 Gm Hfa.aer.ad, 2 PUFF INH Q4-6HP PRN for wheezing Allergies Coded Allergies: No Known Allergies (Unverified , 06/30/18) KEITH SALINAS MD January 19, 2020 11:43
== END 2020-01-19 14:13 | disposition home or self-care (01) | DRG 140 ==
LOC: M ED 16:51 → M ED INP 19:34 → ENRESERV 20:23 → M PCU 21:21 → OBSVTOIN 01-18 14:06
PROVIDERS: ADMIT Internal Medicine; ATTEND Internal Medicine
DX: J44.1 Chronic obstructive pulmonary disease with (acute) exacerbation (principal); E87.3 Alkalosis; E46 Unspecified protein-calorie malnutrition; R64 Cachexia; E87.2 Acidosis; E83.51 Hypocalcemia; E87.6 Hypokalemia; Z91.14 Patient's other noncompliance with medication regimen; F17.200 Nicotine dependence, unspecified, uncomplicated; M81.0 Age-related osteoporosis without current pathological fracture; Z79.899 Other long term (current) drug therapy; Z68.1 Body mass index [BMI] 19.9 or less, adult

== ENCOUNTER → 2020-05-24 | Outpatient (REF) | payer OTHER ==
[~2020-05-24] MED LIST changes: +ALBU83IN NEB; +COMBAER6 INH; +DOCU100C16 PO; +LEVA1TAB2 PO; +NICO7PA TD; +PANT40TA29 PO; +[UNRECOGNIZED DRUG - CODE] XX
[2020-05-24 18:51] LABS: BASO % 0.4 % (0.0-1.0); EOS % 0.2 % (0.0-3.0); HEMATOCRIT 46.1 % (42.0-52.0); HEMOGLOBIN 15.6 g/dl (13.5-17.5); LYMPH # 3.2 10^3/uL (1.5-5.0); LYMPH % 38.3 % (24.0-44.0); MEAN CORPUSCULAR HEMOGLOBIN 35.1 pg (27.0-33.0); MEAN CORPUSCULAR HGB CONC 33.8 g/dl (32.0-36.5); MEAN CORPUSCULAR VOLUME 103.8 fl (80.0-96.0); NEUTROPHILS # 4.1 10^3/uL (1.5-8.5); NEUTROPHILS % 48.9 % (36.0-66.0); PLATELET COUNT, AUTOMATED 302 10^3/uL (150-450); RED BLOOD COUNT 4.44 10^6/uL (4.30-6.10); WHITE BLOOD COUNT 8.4 10^3/uL (4.0-10.0)
[2020-05-24 19:07] LABS: ALBUMIN 4.4 GM/DL (3.2-5.2); ALT/SGPT 26 U/L (12-78); BILIRUBIN,TOTAL 0.7 MG/DL (0.2-1.0); BLOOD UREA NITROGEN 5 MG/DL (7-18); CALCIUM LEVEL 8.8 MG/DL (8.8-10.2); CARBON DIOXIDE LEVEL 33 MEQ/L (21-32); CHLORIDE LEVEL 103 MEQ/L (98-107); CHOLESTEROL LEVEL 211 MG/DL (<200); CHOLESTEROL RISK RATIO 2.971 (<5); CREATININE FOR GFR 0.69 MG/DL (0.70-1.30); FERRITIN 95 NG/ML (26-388); FREE T4 0.93 NG/DL (0.76-1.46); GLOMERULAR FILTRATION RATE > 60.0 (>49); GLUCOSE, FASTING 108 MG/DL (70-100); HDL CHOLESTEROL 71 MG/DL (>40); IRON (FE) 186 UG/DL (65-175); LDL CHOLESTEROL 105 MG/DL (<100); NON-HDL-C 140 MG/DL; POTASSIUM SERUM 3.3 MEQ/L (3.5-5.1); SODIUM LEVEL 140 MEQ/L (136-145); TOTAL PROTEIN 7.3 GM/DL (6.4-8.2); TRIGLYCERIDES LEVEL 174 MG/DL (<150)
[2020-05-24 19:09] LABS: HEMOGLOBIN A1c 5.4 %
[2020-05-24 19:12] LABS: FOLATE 6.7 NG/ML (>5.4); TOTAL 25(OH) VITAMIN D 10.8 NG/ML (30.0-100.0); VITAMIN B12 LEVEL 468 PG/ML (247-911)
== END ==
LOC: M LAB REF 18:16
PROVIDERS: ATTEND Nurse Practitioner Family
DX: Z00.01 Encounter for general adult medical examination with abnormal findings (principal); Z13.9 Encounter for screening, unspecified; F10.20 Alcohol dependence, uncomplicated; J44.1 Chronic obstructive pulmonary disease with (acute) exacerbation; F17.200 Nicotine dependence, unspecified, uncomplicated

== ENCOUNTER → 2021-02-14 | Outpatient (CLI) | payer OTHER ==
[~2021-02-14] MED LIST changes: +ESCI10TA16; -ESCI10TA2; -ESCI20TA PO; +ESCI20TA16 PO
--- NOTE | 2021-02-16 08:03 | REP ---
INDICATION: NICOTINE DEPENDENCE COMPARISON: 01/17/2020 TECHNIQUE: Axial noncontrast images from the thoracic inlet to the upper abdomen using low-dose lung screening technique (LDCT). FINDINGS: Chronic COPD/emphysematous changes with primarily nodular biapical scarring. No obvious acute consolidation, nodule or mass. Previously noted scattered ground-glass non solid opacities have resolved. No effusion. No pneumothorax. IMPRESSION: Lung-RADS category 2. Chronic COPD/emphysematous changes along with nodular biapical scarring similar to prior examination dated 01/17/2020. Management recommendations include annual low-dose CT surveillance. <Electronically signed by Shar Carson > 02/16/21 [id number]
== END ==
LOC: M RAD 11:26
PROVIDERS: ATTEND Internal Medicine Pulmonary Disease
DX: Z12.2 Encounter for screening for malignant neoplasm of respiratory organs (principal); F17.210 Nicotine dependence, cigarettes, uncomplicated; J44.9 Chronic obstructive pulmonary disease, unspecified; J98.4 Other disorders of lung

== ENCOUNTER 2021-03-05 18:13 | Emergency (ER) | payer OTHER ==
[~2021-03-05] VITALS: Ht 170.2 cm; Wt 49.7 kg
[~2021-03-05 18:13] MED LIST changes: +OMEP40CA4 PO; -OMEP40CA97 PO
[2021-03-05] MEDS ORDERED: ANOR1AER PO (18:29)
[2021-03-05] MEDS ORDERED: MORPHINE 4 MG/ML 1ML VIAL/SYRINGE (J2270) IV ONE (19:25)
[2021-03-05] MEDS ORDERED: KCL 10MEQ/100ML SWI (KRUN) 10 MEQ in IV 1 EA IV ONE ×4 (20:35)
[2021-03-05] MEDS ORDERED: POTASSIUM CHLORIDE 10 MEQ SR TABLET PO ONE (20:35)
[2021-03-05 20:39] LABS: BASO % 0.3 % (0.0-1.0); EOS # 0.2 10^3/uL (0.0-0.5); EOS % 1.5 % (0.0-3.0); HEMATOCRIT 41.4 % (42.0-52.0); HEMOGLOBIN 14.4 g/dl (13.5-17.5); LYMPH # 5.6 10^3/uL (1.5-5.0); LYMPH % 56.8 % (24.0-44.0); MEAN CORPUSCULAR HEMOGLOBIN 35.8 pg (27.0-33.0); MEAN CORPUSCULAR HGB CONC 34.8 g/dl (32.0-36.5); MONO # 0.7 10^3/uL (0.0-0.8); MONO % 7.1 % (2.0-8.0); NEUTROPHILS # 3.4 10^3/uL (1.5-8.5); NEUTROPHILS % 34.1 % (36.0-66.0); PLATELET COUNT, AUTOMATED 180 10^3/uL (150-450); RED BLOOD COUNT 4.02 10^6/uL (4.30-6.10)
[2021-03-05] MEDS ORDERED: ISOVUE-370 76% 100ML VIAL As Ordered ONE (20:41)
[2021-03-05 20:44] LABS: WHITE BLOOD COUNT 9.9 10^3/uL (4.0-10.0)
--- NOTE | 2021-03-05 20:47 | REPVR ---
PROCEDURE INFORMATION: Exam: XR Ribs Exam date and time: 03/05/2021 7:22 PM Age: 65 years old Clinical indication: Chest wall pain; Right; Additional info: Lower rib pain, potentially from trauma, eval for fractures TECHNIQUE: Imaging protocol: XR of the ribs. Views: 3 views. Bilateral ribs. COMPARISON: [facility] PORTABLE CHEST X-RAY 01/17/2020 5:12 PM FINDINGS: Bones/joints: Deformity right posterior 3rd through 5th ribs consistent with a prior rib fractures, stable in appearance comparison to the prior study of 01/17/2020. Acute to subacute rib fractures left 8th and 9th ribs. Soft tissues: Normal. IMPRESSION: Acute to subacute rib fractures left 8th and 9th ribs. Electronically signed by: Antonio Torres On 03/05/2021 20:47:13 PM
--- NOTE | 2021-03-05 21:08 | REPVR ---
PROCEDURE INFORMATION: Exam: CT Abdomen And Pelvis With Contrast Exam date and time: 03/05/2021 8:53 PM Age: 65 years old Clinical indication: Abdominal pain; Localized; Right lower quadrant (rlq); Additional info: Right flank pain, TECHNIQUE: Imaging protocol: Computed tomography of the abdomen and pelvis with contrast. Radiation optimization: All CT scans at this facility use at least one of these dose optimization techniques: automated exposure control; mA and/or kV adjustment per patient size (includes targeted exams where dose is matched to clinical indication); or iterative reconstruction. Contrast material: ISOVUE 370; Contrast volume: 100 ml; Contrast route: INTRAVENOUS (IV); COMPARISON: SR CT ABD/PEL W/IV ORAL CONTRAS 06/02/2017 1:14 AM FINDINGS: Liver: There is a diffuse decrease in hepatic parenchymal density, consistent with steatosis. Gallbladder and bile ducts: Normal. No calcified stones. No ductal dilation. Pancreas: Normal. No ductal dilation. Spleen: Normal. No splenomegaly. Adrenal glands: Normal. No mass. Kidneys and ureters: Normal. No hydronephrosis. Stomach and bowel: Boggy appearance of the right colon may indicate the presence of segmental colitis. No abscess demonstrated. Several dilated loops of small bowel demonstrated in the lower abdomen, finding which may indicate an ileus or enteritis. Small bowel obstruction not excluded but considered less likely. Appendix: No evidence of appendicitis. Intraperitoneal space: Unremarkable. No free air. No significant fluid collection. Vasculature: The aortoiliac vessels demonstrate moderate atherosclerotic calcification. Lymph nodes: See "Urinary bladder" finding. Urinary bladder: Bladder is collapsed and as such not completely evaluated. No gross abnormality demonstrated. Reproductive: Unremarkable as visualized. Bones/joints: Moderate central spinal stenosis L2-L3, severe central spinal stenosis L3-L4 and L4-L5. Slight anterolisthesis of L4 on L5. Soft tissues: Unremarkable. IMPRESSION: 1. There is a diffuse decrease in hepatic parenchymal density, consistent with steatosis. 2. Boggy appearance of the right colon may indicate the presence of segmental colitis. No abscess demonstrated. 3. Several dilated loops of small bowel demonstrated in the lower abdomen, finding which may indicate an ileus or enteritis. Small bowel obstruction not excluded but considered less likely. Electronically signed by: Antonio Torres On 03/05/2021 21:07:41 PM
[2021-03-05 21:09] LABS: ALBUMIN 3.5 GM/DL (3.2-5.2); BILIRUBIN,DIRECT 0.2 MG/DL (0.0-0.2); BILIRUBIN,TOTAL 0.6 MG/DL (0.2-1.0); TOTAL PROTEIN 6.9 GM/DL (6.4-8.2)
[2021-03-05] MEDS ORDERED: THIAMINE 100 MG TAB PO ONE (21:20)
[2021-03-05] MEDS ORDERED: NS 1,000 ML IV ONE ×2 (22:05)
[2021-03-06 01:17] VITALS: BP 145/80
== END 2021-03-06 01:58 | disposition home or self-care (01) ==
LOC: M ED 18:13
DX: S22.41XA Multiple fractures of ribs, right side, initial encounter for closed fracture (principal); X58.XXXA Exposure to other specified factors, initial encounter; Y92.9 Unspecified place or not applicable; Y93.9 Activity, unspecified; Y99.9 Unspecified external cause status; R10.11 Right upper quadrant pain; R07.81 Pleurodynia; J44.9 Chronic obstructive pulmonary disease, unspecified; Z87.01 Personal history of pneumonia (recurrent); F17.200 Nicotine dependence, unspecified, uncomplicated; F10.10 Alcohol abuse, uncomplicated
CPT/HCPCS: 71110; 74177; 80047; 80076; 81001; 83605; 83690; 85025; 93041; 96361; 96365; 96366; 96375; 99285; J2270; Q9967

== ENCOUNTER → 2021-03-30 | Outpatient (REF) | payer OTHER ==
[~2021-03-30] MED LIST changes: +ANOR1AER PO
[2021-03-30 17:43] LABS: BASO % 0.4 % (0.0-1.0); EOS # 0.1 10^3/uL (0.0-0.5); EOS % 1.4 % (0.0-3.0); HEMATOCRIT 38.8 % (42.0-52.0); HEMOGLOBIN 13.1 g/dl (13.5-17.5); LYMPH # 3.1 10^3/uL (1.5-5.0); LYMPH % 38.5 % (24.0-44.0); MEAN CORPUSCULAR HEMOGLOBIN 36.1 pg (27.0-33.0); MEAN CORPUSCULAR HGB CONC 33.8 g/dl (32.0-36.5); MEAN CORPUSCULAR VOLUME 106.9 fl (80.0-96.0); MONO # 0.8 10^3/uL (0.0-0.8); MONO % 10.6 % (2.0-8.0); NEUTROPHILS # 3.9 10^3/uL (1.5-8.5); NEUTROPHILS % 48.6 % (36.0-66.0); PLATELET COUNT, AUTOMATED 293 10^3/uL (150-450); RED BLOOD COUNT 3.63 10^6/uL (4.30-6.10); WHITE BLOOD COUNT 7.9 10^3/uL (4.0-10.0)
[2021-03-30 17:56] LABS: ALBUMIN 3.3 GM/DL (3.2-5.2); ALT/SGPT 16 U/L (12-78); BILIRUBIN,TOTAL 0.3 MG/DL (0.2-1.0); BLOOD UREA NITROGEN 7 MG/DL (7-18); CALCIUM LEVEL 8.2 MG/DL (8.8-10.2); CARBON DIOXIDE LEVEL 30 MEQ/L (21-32); CHLORIDE LEVEL 106 MEQ/L (98-107); CHOLESTEROL LEVEL 215 MG/DL (<200); CHOLESTEROL RISK RATIO 3.839 (<5); CREATININE FOR GFR 0.64 MG/DL (0.70-1.30); FERRITIN 118 NG/ML (26-388); FREE T4 0.75 NG/DL (0.76-1.46); GLOMERULAR FILTRATION RATE > 60.0 (>49); GLUCOSE, FASTING 88 MG/DL (70-100); HDL CHOLESTEROL 56 MG/DL (>40); IRON (FE) 115 UG/DL (65-175); LDL CHOLESTEROL 132 MG/DL (<100); MAGNESIUM LEVEL 1.8 MG/DL (1.8-2.4); NON-HDL-C 159 MG/DL; PERCENT SATURATION 38.5 % (19.7-50.0); SODIUM LEVEL 140 MEQ/L (136-145); THYROID STIMULATING HORMONE 0.739 uIU/ML (0.358-3.740); TOTAL IRON BINDING CAPACITY 299 UG/DL (250-450); TOTAL PROTEIN 6.4 GM/DL (6.4-8.2); TRIGLYCERIDES LEVEL 135 MG/DL (<150)
[2021-03-30 17:57] LABS: FOLATE 3.5 NG/ML; TOTAL 25(OH) VITAMIN D 17.5 NG/ML (30.0-100.0); VITAMIN B12 LEVEL 456 PG/ML
[2021-03-30 18:20] LABS: HEMOGLOBIN A1c 5.3 %
[2021-03-30 18:36] LABS: HIV 1&2 SCREEN CENTAUR NEGATIVE (NEGATIVE)
[2021-04-01 19:17] LABS: PSA TOTAL 0.5 ng/mL (0.0-4.0); TESTOSTERONE FREE (DIRECT) 5.8 pg/mL (6.6-18.1)
== END ==
LOC: M LAB REF 16:30
PROVIDERS: ATTEND Nurse Practitioner Family
DX: Z00.00 Encounter for general adult medical examination without abnormal findings (principal); J44.9 Chronic obstructive pulmonary disease, unspecified; F52.21 Male erectile disorder; F17.200 Nicotine dependence, unspecified, uncomplicated; Z13.29 Encounter for screening for other suspected endocrine disorder; Z13.228 Encounter for screening for other metabolic disorders

== ENCOUNTER 2021-04-02 14:30 | Emergency (ER) | payer OTHER ==
[2021-04-02] MEDS ORDERED: KETOROLAC TROMETHAMINE 10 MG TAB PO ONE (16:50)
--- NOTE | 2021-04-02 17:07 | REP ---
INDICATION: fell. COMPARISON: Comparison radiographs are from March 05, 2021.. TECHNIQUE: Five views including PA chest. FINDINGS: PA chest radiograph shows no evidence of pneumothorax or hydrothorax. Mediastinum is not widened. Heart size is normal. No contusion or infiltrate is seen in the lung farrar. There is a nodular opacity in each perihilar region, 1 on each side consistent with nipple silhouettes. I note that the patient had just undergone a screening low-dose CT study of the chest February 14, 2021 which was lung RADS category 2. There are multiple old healed rib fractures on the right unchanged from comparison study. Right rib views demonstrate cortical irregularity suggestive of more recent fractures involving the right lateral 6th, 7th, 8th and 9th ribs. There is increased density here suggesting that these may be subacute. Opposite oblique shows more acute cortical step-off in the lateral 10th and 9th ribs. IMPRESSION: Recent fractures involving the right lateral 6th through 10th ribs, nondisplaced. Several of these could be subacute. There are multiple old healed rib fractures as well. No complication is seen. <Electronically signed by José Miguel Crockett > 04/02/21 [id number]
--- NOTE | 2021-04-02 17:20 | REP ---
INDICATION: fell/ruq pain liver and kidney. COMPARISON: Comparison CT study March 05, 2021.. TECHNIQUE: Right upper quadrant sonography. FINDINGS: Scanning through the right upper quadrant of the abdomen demonstrates a normal sized, thin-walled gallbladder without evidence of stone or polyp. Common bile duct is normal measuring 0.4 cm in greatest diameter. No focal liver lesion is seen. Liver size is normal. No pancreatic abnormality is observed. No right renal abnormality is seen. There is no evidence of ascites. The right kidney measures 10.1 x 5.8 x 4.5 cm. The liver appears diffusely somewhat hyperechoic consistent with fatty infiltration. IMPRESSION: Evidence of fatty infiltration of the liver. No traumatic abnormality noted.. <Electronically signed by José Miguel Crockett > 04/02/21 [id number]
[2021-04-02 17:54] VITALS: BP 128/96
== END 2021-04-02 17:57 | disposition home or self-care (01) ==
LOC: M ED 14:30 → EDBD 14:30 → M ED 17:57
DX: S22.41XA Multiple fractures of ribs, right side, initial encounter for closed fracture (principal); W19.XXXA Unspecified fall, initial encounter; Y92.89 Other specified places as the place of occurrence of the external cause; Y93.9 Activity, unspecified; Y99.9 Unspecified external cause status; J44.9 Chronic obstructive pulmonary disease, unspecified; F10.10 Alcohol abuse, uncomplicated; F41.9 Anxiety disorder, unspecified; F32.9 Major depressive disorder, single episode, unspecified; F17.200 Nicotine dependence, unspecified, uncomplicated; F12.10 Cannabis abuse, uncomplicated; Z87.09 Personal history of other diseases of the respiratory system; Z79.899 Other long term (current) drug therapy

== ENCOUNTER → 2021-04-19 | Outpatient (CLI) | payer OTHER ==
--- NOTE | 2021-04-19 16:28 | REP ---
INDICATION: PAIN IN ESTUARDO LEGS COMPARISON: None. TECHNIQUE: Bilateral lower extremity arterial ultrasound with color Doppler analysis. FINDINGS: All numeric values represent peak systolic velocity in cm/SEC On the right: The ankle brachial index is 0.8 BASE ENGINEER: 115.9 biphasic Profunda: 97.2 triphasic SFA proximal: 73.5 triphasic SFA Mid: 93.1 triphasic SFA distal: 145.3 triphasic Popliteal: 48.6 triphasic KARTHIKEYAN proximal: 42.1 triphasic Tibioperoneal trunk: 45.3 triphasic [employer]TER [employer]AT CAPTAIN proximal: 46.0 triphasic [employer]TER [employer]AT CAPTAIN distal: 18.4 monophasic KARTHIKEYAN distal 30.9 monophasic On the left: The ankle brachial index is 0.7 BASE ENGINEER: 133.3 triphasic Profunda: 68.2 triphasic SFA proximal: 31.9 triphasic to monophasic SFA mid: Trickle flow monophasic SFA distal: 9.9 monophasic Popliteal: 21.1 monophasic KARTHIKEYAN proximal 30.3 monophasic Tibioperoneal trunk 27.7 monophasic [employer]AT CAPTAIN proximal: 29.7 monophasic CHARTER BOAT CAPTAIN distal 15.6 monophasic KARTHIKEYAN distal 16.8 monophasic Severe plaque formation was seen bilaterally. Numerous collaterals were seen on the left distal to the SFA. IMPRESSION: As above <Electronically signed by Riley Stout > 04/19/21 [id number]
== END ==
LOC: M RAD 14:06
PROVIDERS: ATTEND Nurse Practitioner Family
DX: M79.604 Pain in right leg (principal); M79.605 Pain in left leg; I70.203 Unspecified atherosclerosis of native arteries of extremities, bilateral legs

== ENCOUNTER 2022-07-26 09:38 | Inpatient (IN) | payer OTHER ==
[~2022-07-26] VITALS: Ht 170.2 cm; Wt 41.2 kg
[~2022-07-26 09:38] MED LIST changes: +ALBU2.5V10 NEB; -ALBU83IN NEB
[2022-07-26 10:32] LABS: BASO % 0.4 % (0.0-1.0); EOS % 0.2 % (0.0-3.0); HEMOGLOBIN 12.2 g/dl (13.5-17.5); LYMPH # 3.3 10^3/uL (1.5-5.0); LYMPH % 40.4 % (24.0-44.0); MEAN CORPUSCULAR HEMOGLOBIN 33.6 pg (27.0-33.0); MEAN CORPUSCULAR HGB CONC 33.9 g/dl (32.0-36.5); MEAN CORPUSCULAR VOLUME 99.2 fl (80.0-96.0); MONO # 0.8 10^3/uL (0.0-0.8); NEUTROPHILS # 3.9 10^3/uL (1.5-8.5); NEUTROPHILS % 48.5 % (36.0-66.0); PLATELET COUNT, AUTOMATED 140 10^3/uL (150-450); RED BLOOD COUNT 3.63 10^6/uL (4.30-6.10); WHITE BLOOD COUNT 8.1 10^3/uL (4.0-10.0)
[2022-07-26] MEDS: COMBIVENT RESPIMAT 100-20MCG INHALER 4GM INH SCH ×3 (10:46→11:57)
[2022-07-26] MEDS ORDERED: methylPREDNISolone 125MG 2ML VIAL IV ONE (10:50)
[2022-07-26 11:11] LABS: ABG BASE EXCESS 3.9 (-2.0-2.0); ABG HCO3 28.3 MEQ/L (22.0-26.0); ABG O2 SATURATION 98.3 % (95.0-99.0); ABG PARTIAL PRESSURE CO2 41.7 mmHg (35.0-45.0); ABG PARTIAL PRESSURE O2 117.7 mmHg (75.0-100.0); ABG TOTAL CO2 29.5 MEQ/L (23.0-31.0); ABG pH (ARTERIAL) 7.449 UNITS (7.350-7.450)
[2022-07-26 11:21] LABS: ALBUMIN 3.1 G/DL (3.2-5.2); ALT/SGPT 75 U/L (7.0-40); BILIRUBIN,DIRECT 0.3 MG/DL (<0.4); BILIRUBIN,TOTAL 0.7 MG/DL (0.3-1.2); BLOOD UREA NITROGEN 6 MG/DL (9-23); CALCIUM LEVEL 8.1 MG/DL (8.3-10.6); CARBON DIOXIDE LEVEL 27 MMOL/L (20-31); CHLORIDE LEVEL 92 MMOL/L (98-107); CREATININE FOR GFR 0.46 MG/DL (0.70-1.30); GLOMERULAR FILTRATION RATE > 60.0 (>49); GLUCOSE, FASTING 104 MG/DL (74-106); POTASSIUM SERUM 3.5 MMOL/L (3.5-5.1); SODIUM LEVEL 130 MMOL/L (136-145); THYROID STIMULATING HORMONE 2.777 uIU/ML (0.55-4.78); TOTAL PROTEIN 6.6 G/DL (5.7-8.2)
[2022-07-26 11:38] LABS: CK-MB VALUE MASS < 1.0 NG/ML (<3.6); CPK CREATINE PHOSPHOKINASE 53 U/L (46-171); MB/CK RELATIVE INDEX 1.88 (< OR =4)
[2022-07-26 14:22] LABS: ETHYL ALCOHOL (ETHANOL) 0.261 % (0.000-0.010)
[2022-07-26] MEDS ORDERED: HOME MED LIST COMPLETE! XX SCH (14:50)
[2022-07-26] MEDS ORDERED: ISOVUE-370 76% 100ML VIAL As Ordered ONE (15:31)
[2022-07-26] MEDS ORDERED: VANCOMYCIN HCL 1,000 MG, VIAL MATE ADAPTER 1 EACH in NS 250 ML IV SCH (16:15)
[2022-07-26] MEDS ORDERED: NS 1,000 ML IV SCH (16:30)
[2022-07-26 19:40] LABS: BLOOD UREA NITROGEN 6 MG/DL (9-23); CALCIUM LEVEL 8.1 MG/DL (8.3-10.6); CARBON DIOXIDE LEVEL 28 MMOL/L (20-31); CHLORIDE LEVEL 90 MMOL/L (98-107); CHOLESTEROL RISK RATIO 1.94 (<5); CREATININE FOR GFR 0.41 MG/DL (0.70-1.30); GLOMERULAR FILTRATION RATE > 60.0 (>49); GLUCOSE, FASTING 106 MG/DL (74-106); HDL CHOLESTEROL 65.8 MG/DL (>40); SODIUM LEVEL 133 MMOL/L (136-145)
[2022-07-26] MEDS: IPRATROPIUM 0.5MG/ALBUTEROL 2.5MG INH SOL UD 3ML (DUONEB) NEB SCH (20:11)
[2022-07-26 20:12] LABS: FOLATE 9.72 NG/ML (>5.4)
[2022-07-26] MEDS ORDERED: SODIUM CHLORIDE 0.9% 1000ML IV ONE (20:35)
[2022-07-27] MEDS: THIAMINE 100 MG TAB PO SCH ×3 (01:02→20:46)
[2022-07-27] MEDS: ASPIRIN 81 MG CHEW TABLET PO SCH ×2 (01:02→09:14)
[2022-07-27] MEDS: DOXYCYCLINE HYCLATE 100 MG in D5W MINI-BAG PLUS 100 ML IV SCH ×2 (01:03→05:53)
[2022-07-27 02:17] VITALS: BP 112/63
[2022-07-27 05:58] LABS: HEMATOCRIT 31.5 % (42.0-52.0); HEMOGLOBIN 10.9 g/dl (13.5-17.5); MEAN CORPUSCULAR HEMOGLOBIN 34.1 pg (27.0-33.0); MEAN CORPUSCULAR HGB CONC 34.6 g/dl (32.0-36.5); MEAN CORPUSCULAR VOLUME 98.4 fl (80.0-96.0); WHITE BLOOD COUNT 8.4 10^3/uL (4.0-10.0)
[2022-07-27 06:19] VITALS: BP 112/67
[2022-07-27 06:24] VITALS: BP 112/68
[2022-07-27 06:46] LABS: PLATELET COUNT, AUTOMATED 97 10^3/uL (150-450)
[2022-07-27 07:06] LABS: ALBUMIN 2.6 G/DL (3.2-5.2); ALT/SGPT 53 U/L (7.0-40); BILIRUBIN,TOTAL 1.2 MG/DL (0.3-1.2); BLOOD UREA NITROGEN 9 MG/DL (9-23); CALCIUM LEVEL 7.9 MG/DL (8.3-10.6); CARBON DIOXIDE LEVEL 30 MMOL/L (20-31); CHLORIDE LEVEL 92 MMOL/L (98-107); CREATININE FOR GFR 0.42 MG/DL (0.70-1.30); GLOMERULAR FILTRATION RATE > 60.0 (>49); GLUCOSE, FASTING 115 MG/DL (74-106); POTASSIUM SERUM 3.2 MMOL/L (3.5-5.1); SODIUM LEVEL 130 MMOL/L (136-145); TOTAL PROTEIN 5.7 G/DL (5.7-8.2)
[2022-07-27] MEDS ORDERED: POTASSIUM CHLORIDE 10MEQ SR TABLET PO ONE (07:15)
[2022-07-27 07:33] LABS: ERYTHROCYTE SEDIMENTATION RATE 35 mm/hr (0-20)
[2022-07-27 08:00] LABS: INR 0.98; PROTHROMBIN TIME 13.2 SECONDS (12.5-14.5)
[2022-07-27] MEDS: IPRATROPIUM 0.5MG/ALBUTEROL 2.5MG INH SOL UD 3ML (DUONEB) NEB SCH ×4 (08:28→20:25)
[2022-07-27] MEDS ORDERED: ASPIRIN 81 MG CHEW TABLET PO SCH (09:00)
[2022-07-27] MEDS: ENOXAPARIN 40MG/0.4ML SYRINGE (J1650 PER 10MG) SC SCH (09:00)
[2022-07-27] MEDS ORDERED: dexameTHASONE 20MG/5ML VIAL (J1100 PER 1MG) IV ONE (09:00)
[2022-07-27] MEDS: ATORVASTATIN 20 MG TAB PO SCH (09:14)
[2022-07-27] MEDS: FOLIC ACID 1MG TAB PO SCH (09:15)
[2022-07-27] MEDS: MULTIVITAMINS/MINERALS THERAP 1 TAB PO SCH (09:15)
[2022-07-27 11:35] LABS: SODIUM,RANDOM URINE 88 MMOL/L
[2022-07-27 14:00] VITALS: BP 100/72
[2022-07-27 16:23] LABS: BLOOD UREA NITROGEN 8 MG/DL (9-23); CARBON DIOXIDE LEVEL 29 MMOL/L (20-31); CHLORIDE LEVEL 92 MMOL/L (98-107); CREATININE FOR GFR 0.37 MG/DL (0.70-1.30); GLOMERULAR FILTRATION RATE > 60.0 (>49); GLUCOSE, FASTING 209 MG/DL (74-106); POTASSIUM SERUM 3.3 MMOL/L (3.5-5.1); SODIUM LEVEL 132 MMOL/L (136-145)
[2022-07-27 16:24] LABS: CALCIUM LEVEL 7.7 MG/DL (8.3-10.6)
[2022-07-27] MEDS: POTASSIUM CHLORIDE 10MEQ SR TABLET PO SCH (17:36)
[2022-07-27] MEDS: DOXYCYCLINE HYCLATE 100MG TABLET PO SCH (20:46)
[2022-07-27] MEDS: ACETAMINOPHEN TAB 650MG DOSE (2X325MG) PO PRN (20:59)
[2022-07-27 21:21] VITALS: BP 100/55
[2022-07-28 01:08] LABS: OSMOLALITY URINE 379 MOSM/KG (50-1400)
[2022-07-28 05:40] VITALS: BP 140/84
[2022-07-28 07:00] VITALS: BP 140/84
[2022-07-28 07:31] LABS: BASO % 0.2 % (0.0-1.0); EOS % 0.3 % (0.0-3.0); HEMOGLOBIN 11.9 g/dl (13.5-17.5); LYMPH # 2.3 10^3/uL (1.5-5.0); LYMPH % 35.3 % (24.0-44.0); MEAN CORPUSCULAR HEMOGLOBIN 33.9 pg (27.0-33.0); MEAN CORPUSCULAR HGB CONC 33.1 g/dl (32.0-36.5); MEAN CORPUSCULAR VOLUME 102.6 fl (80.0-96.0); MONO # 0.8 10^3/uL (0.0-0.8); MONO % 11.5 % (2.0-8.0); NEUTROPHILS # 3.4 10^3/uL (1.5-8.5); NEUTROPHILS % 52.1 % (36.0-66.0); PLATELET COUNT, AUTOMATED 112 10^3/uL (150-450); RED BLOOD COUNT 3.51 10^6/uL (4.30-6.10); WHITE BLOOD COUNT 6.5 10^3/uL (4.0-10.0)
[2022-07-28 08:13] LABS: ALBUMIN 2.9 G/DL (3.2-5.2); ALT/SGPT 41 U/L (7.0-40); BILIRUBIN,TOTAL 1.1 MG/DL (0.3-1.2); BLOOD UREA NITROGEN 8 MG/DL (9-23); CARBON DIOXIDE LEVEL 31 MMOL/L (20-31); CHLORIDE LEVEL 98 MMOL/L (98-107); CREATININE FOR GFR 0.39 MG/DL (0.70-1.30); GLOMERULAR FILTRATION RATE > 60.0 (>49); GLUCOSE, FASTING 115 MG/DL (74-106); POTASSIUM SERUM 4.2 MMOL/L (3.5-5.1); SODIUM LEVEL 136 MMOL/L (136-145); TOTAL PROTEIN 6.3 G/DL (5.7-8.2)
[2022-07-28] MEDS: POTASSIUM CHLORIDE 10MEQ SR TABLET PO SCH (08:44)
[2022-07-28] MEDS: ASPIRIN 81 MG CHEW TABLET PO SCH (08:44)
[2022-07-28] MEDS: THIAMINE 100 MG TAB PO SCH ×2 (08:45→21:28)
[2022-07-28] MEDS: ATORVASTATIN 20 MG TAB PO SCH (08:45)
[2022-07-28] MEDS: MULTIVITAMINS/MINERALS THERAP 1 TAB PO SCH (08:45)
[2022-07-28] MEDS: oxyCODONE 5MG TAB PO PRN (08:46)
[2022-07-28] MEDS: FOLIC ACID 1MG TAB PO SCH (08:46)
[2022-07-28] MEDS: DOXYCYCLINE HYCLATE 100MG TABLET PO SCH ×2 (08:47→21:27)
[2022-07-28] MEDS: ENOXAPARIN 40MG/0.4ML SYRINGE (J1650 PER 10MG) SC SCH (08:47)
[2022-07-28] MEDS: IPRATROPIUM 0.5MG/ALBUTEROL 2.5MG INH SOL UD 3ML (DUONEB) NEB SCH ×4 (09:05→21:03)
[2022-07-28] MEDS ORDERED: SENNA 8.6 MG TAB (SENOKOT) PO PRN (10:20)
[2022-07-28] MEDS ORDERED: MIRALAX *UNIT DOSE* 17GM PACKET PO PRN (10:20)
[2022-07-28 14:00] VITALS: BP_SYST 95; BP_SYST 96; BP_DIAS 52; BP_DIAS 63
[2022-07-28] MEDS: ACETAMINOPHEN TAB 650MG DOSE (2X325MG) PO PRN (21:28)
[2022-07-28 21:32] VITALS: BP 114/72
[2022-07-28 21:35] VITALS: BP 114/72
[2022-07-29 05:55] VITALS: BP 107/77
[2022-07-29 07:39] LABS: BASO % 0.2 % (0.0-1.0); EOS # 0.1 10^3/uL (0.0-0.5); EOS % 1.1 % (0.0-3.0); HEMATOCRIT 34.3 % (42.0-52.0); HEMOGLOBIN 11.3 g/dl (13.5-17.5); LYMPH # 1.9 10^3/uL (1.5-5.0); LYMPH % 40.2 % (24.0-44.0); MEAN CORPUSCULAR HEMOGLOBIN 33.7 pg (27.0-33.0); MEAN CORPUSCULAR HGB CONC 32.9 g/dl (32.0-36.5); MEAN CORPUSCULAR VOLUME 102.4 fl (80.0-96.0); MONO # 0.6 10^3/uL (0.0-0.8); MONO % 13.6 % (2.0-8.0); NEUTROPHILS # 2.1 10^3/uL (1.5-8.5); NEUTROPHILS % 44.5 % (36.0-66.0); PLATELET COUNT, AUTOMATED 111 10^3/uL (150-450); RED BLOOD COUNT 3.35 10^6/uL (4.30-6.10); WHITE BLOOD COUNT 4.7 10^3/uL (4.0-10.0)
[2022-07-29 08:00] VITALS: BP 107/77
[2022-07-29 08:17] LABS: ALBUMIN 2.8 G/DL (3.2-5.2); ALT/SGPT 36 U/L (7.0-40); BILIRUBIN,TOTAL 0.9 MG/DL (0.3-1.2); BLOOD UREA NITROGEN 8 MG/DL (9-23); CALCIUM LEVEL 8.6 MG/DL (8.3-10.6); CARBON DIOXIDE LEVEL 28 MMOL/L (20-31); CHLORIDE LEVEL 98 MMOL/L (98-107); GLOMERULAR FILTRATION RATE > 60.0 (>49); GLUCOSE, FASTING 97 MG/DL (74-106); POTASSIUM SERUM 4.1 MMOL/L (3.5-5.1); SODIUM LEVEL 132 MMOL/L (136-145); TOTAL PROTEIN 6.1 G/DL (5.7-8.2)
[2022-07-29] MEDS: IPRATROPIUM 0.5MG/ALBUTEROL 2.5MG INH SOL UD 3ML (DUONEB) NEB SCH ×4 (08:19→21:00)
[2022-07-29] MEDS: MULTIVITAMINS/MINERALS THERAP 1 TAB PO SCH (09:28)
[2022-07-29] MEDS: ENOXAPARIN 40MG/0.4ML SYRINGE (J1650 PER 10MG) SC SCH (09:28)
[2022-07-29] MEDS: ASPIRIN 81 MG CHEW TABLET PO SCH (09:28)
[2022-07-29] MEDS: FOLIC ACID 1MG TAB PO SCH (09:28)
[2022-07-29] MEDS: DOXYCYCLINE HYCLATE 100MG TABLET PO SCH ×2 (09:28→21:04)
[2022-07-29] MEDS: ATORVASTATIN 20 MG TAB PO SCH (09:28)
[2022-07-29] MEDS: THIAMINE 100 MG TAB PO SCH (09:29)
[2022-07-29 15:20] VITALS: BP 115/64
[2022-07-29 20:56] VITALS: BP 121/58
[2022-07-29] MEDS: oxyCODONE 5MG TAB PO PRN (21:06)
[2022-07-30 06:25] VITALS: BP 118/74
[2022-07-30] MEDS: IPRATROPIUM 0.5MG/ALBUTEROL 2.5MG INH SOL UD 3ML (DUONEB) NEB SCH ×2 (08:11→12:49)
[2022-07-30 08:16] LABS: BASO % 0.4 % (0.0-1.0); EOS # 0.1 10^3/uL (0.0-0.5); EOS % 1.3 % (0.0-3.0); HEMATOCRIT 32.2 % (42.0-52.0); HEMOGLOBIN 10.7 g/dl (13.5-17.5); LYMPH # 1.6 10^3/uL (1.5-5.0); MEAN CORPUSCULAR HEMOGLOBIN 34.2 pg (27.0-33.0); MEAN CORPUSCULAR HGB CONC 33.2 g/dl (32.0-36.5); MEAN CORPUSCULAR VOLUME 102.9 fl (80.0-96.0); MONO # 0.7 10^3/uL (0.0-0.8); MONO % 13.7 % (2.0-8.0); NEUTROPHILS # 2.4 10^3/uL (1.5-8.5); PLATELET COUNT, AUTOMATED 138 10^3/uL (150-450); RED BLOOD COUNT 3.13 10^6/uL (4.30-6.10); WHITE BLOOD COUNT 4.7 10^3/uL (4.0-10.0)
[2022-07-30 08:51] LABS: ALBUMIN 2.8 G/DL (3.2-5.2); ALT/SGPT 35 U/L (7.0-40); BILIRUBIN,TOTAL 0.8 MG/DL (0.3-1.2); BLOOD UREA NITROGEN 7 MG/DL (9-23); CARBON DIOXIDE LEVEL 27 MMOL/L (20-31); CHLORIDE LEVEL 99 MMOL/L (98-107); CREATININE FOR GFR 0.44 MG/DL (0.70-1.30); GLOMERULAR FILTRATION RATE > 60.0 (>49); GLUCOSE, FASTING 88 MG/DL (74-106); POTASSIUM SERUM 3.6 MMOL/L (3.5-5.1); SODIUM LEVEL 134 MMOL/L (136-145); TOTAL PROTEIN 6.1 G/DL (5.7-8.2)
[2022-07-30] MEDS: DOXYCYCLINE HYCLATE 100MG TABLET PO SCH (09:23)
[2022-07-30] MEDS: MULTIVITAMINS/MINERALS THERAP 1 TAB PO SCH (09:23)
[2022-07-30] MEDS: FOLIC ACID 1MG TAB PO SCH (09:24)
[2022-07-30] MEDS: ENOXAPARIN 40MG/0.4ML SYRINGE (J1650 PER 10MG) SC SCH (09:24)
[2022-07-30] MEDS: ATORVASTATIN 20 MG TAB PO SCH (09:24)
[2022-07-30] MEDS: ASPIRIN 81 MG CHEW TABLET PO SCH (09:24)
[2022-07-30] MEDS ORDERED: DOXY100T PO (12:22)
[2022-07-30] MEDS ORDERED: ATOR1TAB21 PO (12:22)
[2022-07-30] MEDS ORDERED: ASPI81TA26 PO (12:22)
[2022-07-30] MEDS ORDERED: FOLI1TAB11 PO (12:22)
== END 2022-07-30 15:19 | disposition home health service (06) | DRG 197 ==
LOC: M ED 09:38 → M ED INP 16:04 → ENRESERV 21:37 → CANRESERV 21:37 → ENRESERV 21:40 → M MS5PR 07-27 02:13
PROVIDERS: ADMIT Internal Medicine; ATTEND Internal Medicine
DX: I70.203 Unspecified atherosclerosis of native arteries of extremities, bilateral legs (principal); J12.82 Pneumonia due to coronavirus disease 2019; E46 Unspecified protein-calorie malnutrition; E87.20 Acidosis, unspecified; E87.1 Hypo-osmolality and hyponatremia; L03.115 Cellulitis of right lower limb; U07.1 COVID-19; J44.1 Chronic obstructive pulmonary disease with (acute) exacerbation; K76.0 Fatty (change of) liver, not elsewhere classified; F10.20 Alcohol dependence, uncomplicated; F12.90 Cannabis use, unspecified, uncomplicated; F17.210 Nicotine dependence, cigarettes, uncomplicated; M79.671 Pain in right foot; R63.6 Underweight; Z66 Do not resuscitate; Z68.1 Body mass index [BMI] 19.9 or less, adult; Z91.14 Patient's other noncompliance with medication regimen; R29.6 Repeated falls; E87.6 Hypokalemia

== ENCOUNTER 2023-11-15 15:03 | Emergency (ER) | payer MEDICARE, MEDICAID ==
[~2023-11-15] VITALS: Ht 170.2 cm; Wt 42.5 kg
[~2023-11-15 15:03] MED LIST changes: +ASPI81TA26 PO; +ATOR1TAB21 PO; +DOXY100T PO; +FOLI1TAB11 PO
[2023-11-15 15:32] LABS: BASO # 0.1 10^3/uL (0.0-0.2); BASO % 0.7 % (0.0-1.0); EOS # 0.1 10^3/uL (0.0-0.5); HEMATOCRIT 37.4 % (42.0-52.0); LYMPH # 4.3 10^3/uL (1.5-5.0); MEAN CORPUSCULAR HEMOGLOBIN 35.1 pg (27.0-33.0); MEAN CORPUSCULAR HGB CONC 34.8 g/dl (32.0-36.5); MEAN CORPUSCULAR VOLUME 101.1 fl (80.0-96.0); MONO # 0.7 10^3/uL (0.0-0.8); MONO % 10.9 % (2.0-8.0); NEUTROPHILS # 1.5 10^3/uL (1.5-8.5); NEUTROPHILS % 22.8 % (36.0-66.0); PLATELET COUNT, AUTOMATED 160 10^3/uL (150-450); WHITE BLOOD COUNT 6.8 10^3/uL (4.0-10.0)
[2023-11-15 15:47] LABS: INR 0.96; PARTIAL THROMBOPLASTIN TIME 29.8 SECONDS (24.8-34.2); PROTHROMBIN TIME 12.6 SECONDS (12.5-14.5)
[2023-11-15 16:05] LABS: ALKALINE PHOSPHATASE 82 U/L (46-116); ALT/SGPT 73 U/L (7.0-40); AST/SGOT 170 U/L (<34); BILIRUBIN,DIRECT 0.1 MG/DL (<0.4); BILIRUBIN,TOTAL 0.3 MG/DL (0.3-1.2); BLOOD UREA NITROGEN 6 MG/DL (9-23); CALCIUM LEVEL 7.8 MG/DL (8.3-10.6); CARBON DIOXIDE LEVEL 24 MMOL/L (20-31); CHLORIDE LEVEL 99 MMOL/L (98-107); CREATININE FOR GFR 0.38 MG/DL (0.70-1.30); GLOMERULAR FILTRATION RATE > 60.0 (>49); GLUCOSE, FASTING 98 MG/DL (74-106); MAGNESIUM LEVEL 1.7 MG/DL (1.8-2.4); POTASSIUM SERUM 4.1 MMOL/L (3.5-5.1); SODIUM LEVEL 131 MMOL/L (136-145); TOTAL PROTEIN 6.6 G/DL (5.7-8.2)
[2023-11-15 16:06] LABS: FREE T4 0.79 NG/DL (0.89-1.76); THYROID STIMULATING HORMONE 4.177 uIU/ML (0.55-4.78)
[2023-11-15 16:17] LABS: RSV AMPLIFICATION NEGATIVE (NEGATIVE)
[2023-11-15 17:48] VITALS: BP 110/70; TEMP 98.9; O2SAT 97
[2023-11-15] MEDS ORDERED: ASPI81TA26 PO (17:51)
[2023-11-15] MEDS: ASPIRIN 81MG ENTERIC TABLET PO STA (18:01)
== END 2023-11-15 18:07 | disposition home or self-care (01) ==
LOC: M ED 15:03
DX: I73.9 Peripheral vascular disease, unspecified (principal); J44.9 Chronic obstructive pulmonary disease, unspecified; F17.200 Nicotine dependence, unspecified, uncomplicated

== ENCOUNTER 2024-01-08 10:35 | Inpatient (IN) | payer MEDICARE, MEDICAID ==
[~2024-01-08] VITALS: Ht 170.2 cm; Wt 42.3 kg
[2024-01-08 11:51] LABS: BASO % 0.2 % (0.0-1.0); EOS % 0.5 % (0.0-3.0); HEMATOCRIT 36.2 % (42.0-52.0); HEMOGLOBIN 13.1 g/dl (13.5-17.5); LYMPH # 2.7 10^3/uL (1.5-5.0); LYMPH % 30.8 % (24.0-44.0); MEAN CORPUSCULAR HGB CONC 36.2 g/dl (32.0-36.5); MONO % 11.8 % (2.0-8.0); NEUTROPHILS % 56.4 % (36.0-66.0); PLATELET COUNT, AUTOMATED 168 10^3/uL (150-450); RED BLOOD COUNT 3.85 10^6/uL (4.30-6.10); WHITE BLOOD COUNT 8.9 10^3/uL (4.0-10.0)
[2024-01-08] MEDS: IPRATROPIUM 0.5MG/ALBUTEROL 2.5MG INH SOL UD 3ML (DUONEB) NEB SCH (12:00)
[2024-01-08 12:05] LABS: INR 0.86; PROTHROMBIN TIME 11.5 SECONDS (12.5-14.5)
[2024-01-08 12:15] LABS: LIPASE 16 U/L (12-53)
[2024-01-08 12:16] LABS: ETHYL ALCOHOL (ETHANOL) 0.004 % (0.000-0.010)
[2024-01-08 12:20] LABS: ALBUMIN 2.8 G/DL (3.2-5.2); ALKALINE PHOSPHATASE 88 U/L (46-116); ALT/SGPT 12 U/L (7.0-40); AST/SGOT 20 U/L (<34); BILIRUBIN,DIRECT 0.3 MG/DL (<0.4); BILIRUBIN,TOTAL 0.7 MG/DL (0.3-1.2); BLOOD UREA NITROGEN < 5 MG/DL (9-23); CALCIUM LEVEL 8.4 MG/DL (8.3-10.6); CARBON DIOXIDE LEVEL 29 MMOL/L (20-31); CHLORIDE LEVEL 87 MMOL/L (98-107); CREATININE FOR GFR 0.33 MG/DL (0.70-1.30); GLOMERULAR FILTRATION RATE > 60.0 (>49); GLUCOSE, FASTING 91 MG/DL (74-106); MAGNESIUM LEVEL 1.6 MG/DL (1.8-2.4); POTASSIUM SERUM 3.6 MMOL/L (3.5-5.1); SODIUM LEVEL 126 MMOL/L (136-145); THYROID STIMULATING HORMONE 6.051 uIU/ML (0.55-4.78); TOTAL PROTEIN 6.3 G/DL (5.7-8.2)
[2024-01-08] MEDS ORDERED: IPRATROPIUM 0.5MG/ALBUTEROL 2.5MG INH SOL UD 3ML (DUONEB) NEB PRN (13:35)
[2024-01-08] MEDS ORDERED: LORazepam 2 MG TAB PO PRN (13:35)
[2024-01-08] MEDS: FOLIC ACID 1MG TAB PO SCH (13:51)
[2024-01-08] MEDS: SUCRALFATE 1 GM TAB PO SCH (13:52)
[2024-01-08] MEDS: THIAMINE 100 MG TAB PO SCH (13:52)
[2024-01-08] MEDS: MAG SULF 1GM/100ML (MAG RUN) 1 GM in IV 1 EA IV ONE (13:52)
[2024-01-08] MEDS: NS 1,000 ML IV SCH (13:53)
[2024-01-08] MEDS: MULTIVITAMINS/MINERALS THERAP 1 TAB PO SCH (13:55)
[2024-01-08] MEDS ORDERED: HOME MED LIST COMPLETE! XX SCH (13:55)
[2024-01-08] MEDS: OXAZEPAM 15MG CAP PO SCH (13:56)
[2024-01-08] MEDS: PANTOPRAZOLE 40MG TAB (PROTONIX) PO SCH (13:56)
[2024-01-08] MEDS: AZITHROMYCIN 250MG TABLET PO ONE (13:57)
[2024-01-08 14:04] LABS: THYROXINE (T4) 4.3 UG/DL (4.5-10.9)
[2024-01-08 14:05] LABS: FREE THYROXINE INDEX 1.9 % (1.4-3.8); T UPTAKE 45.3 % (22.5-37.0)
[2024-01-08] MEDS: methylPREDNISolone 125MG 2ML VIAL IV ONE (14:09)
[2024-01-08 14:22] LABS: OSMOLALITY SERUM 268 MOSM/KG (280-301)
[2024-01-08 16:32] VITALS: BP 97/65; TEMP 97.7; O2SAT 92
[2024-01-08 16:33] VITALS: BP 97/65
[2024-01-08] MEDS: MIDODRINE 5 MG TAB PO SCH (18:23)
[2024-01-08 18:24] VITALS: BP 126/82
[2024-01-08 18:24] LABS: C REACTIVE PROTEIN QUANTITATIV 4.6 MG/DL (<1.0)
[2024-01-08 18:26] LABS: BLOOD UREA NITROGEN 7 MG/DL (9-23); CARBON DIOXIDE LEVEL 30 MMOL/L (20-31); CHLORIDE LEVEL 89 MMOL/L (98-107); CREATININE FOR GFR 0.44 MG/DL (0.70-1.30); GLOMERULAR FILTRATION RATE > 60.0 (>49); GLUCOSE, FASTING 157 MG/DL (74-106); POTASSIUM SERUM 3.4 MMOL/L (3.5-5.1); SODIUM LEVEL 128 MMOL/L (136-145)
[2024-01-08 18:33] LABS: PROCALCITONIN 0.06 ng/ml
[2024-01-08] MEDS ORDERED: methylPREDNISolone 125MG 2ML VIAL IV SCH (20:00)
[2024-01-08] MEDS: POTASSIUM CHLORIDE 10MEQ SR TABLET PO ONE (20:02)
[2024-01-08] MEDS: cefTRIAXone SOD 1 GM in D5W MINI-BAG PLUS 50 ML IV SCH (20:02)
[2024-01-08] MEDS: guaiFENesin ER TABLET 600 MG TAB PO SCH (20:02)
[2024-01-08 20:20] VITALS: BP 106/74; TEMP 97.3
[2024-01-08 22:00] VITALS: BP 106/74
[2024-01-08 23:10] LABS: BLOOD UREA NITROGEN 8 MG/DL (9-23); CALCIUM LEVEL 7.4 MG/DL (8.3-10.6); CARBON DIOXIDE LEVEL 29 MMOL/L (20-31); CHLORIDE LEVEL 92 MMOL/L (98-107); CREATININE FOR GFR 0.41 MG/DL (0.70-1.30); GLOMERULAR FILTRATION RATE > 60.0 (>49); GLUCOSE, FASTING 234 MG/DL (74-106); POTASSIUM SERUM 3.1 MMOL/L (3.5-5.1); SODIUM LEVEL 129 MMOL/L (136-145)
[2024-01-09] VITALS (7 sets, daily range): BP systolic 84–100; BP diastolic 40–62; TEMP 96.8–97.3; O2SAT 97–98
[2024-01-09] MEDS: methylPREDNISolone 40MG 1ML VIAL IV SCH (02:21)
[2024-01-09] MEDS: LEVOTHYROXINE 12.5MCG PER 1/2 TAB (0.0125MG) PO SCH (05:28)
[2024-01-09 06:48] LABS: BLOOD UREA NITROGEN 12 MG/DL (9-23); CALCIUM LEVEL 7.6 MG/DL (8.3-10.6); CARBON DIOXIDE LEVEL 33 MMOL/L (20-31); CHLORIDE LEVEL 96 MMOL/L (98-107); CREATININE FOR GFR 0.38 MG/DL (0.70-1.30); GLOMERULAR FILTRATION RATE > 60.0 (>49); GLUCOSE, FASTING 201 MG/DL (74-106); POTASSIUM SERUM 3.7 MMOL/L (3.5-5.1); SODIUM LEVEL 130 MMOL/L (136-145)
[2024-01-09 06:50] LABS: FREE T3 1.7 PG/ML (2.3-4.2); T UPTAKE 48.1 % (22.5-37.0); THYROID STIMULATING HORMONE 2.728 uIU/ML (0.55-4.78)
[2024-01-09 07:15] LABS: SODIUM,RANDOM URINE < 10 MMOL/L
[2024-01-09 07:35] LABS: OSMOLALITY URINE 351 MOSM/KG (50-1400)
[2024-01-09 08:22] LABS: FREE THYROXINE INDEX 1.7 % (1.4-3.8); THYROXINE (T4) 3.5 UG/DL (4.5-10.9)
[2024-01-09 08:58] LABS: MAGNESIUM LEVEL 1.6 MG/DL (1.8-2.4)
[2024-01-09] MEDS: LACTOBACILLUS ACIDOPHILUS CAP (BACID) PO SCH (08:58)
[2024-01-09] MEDS: AZITHROMYCIN 250MG TABLET PO SCH (08:58)
[2024-01-09] MEDS: CALCIUM GLUCONATE 1,000 MG in D5W MINI-BAG PLUS 100 ML IV ONE (08:58)
[2024-01-09] MEDS ORDERED: MIDODRINE 5 MG TAB PO ONE (09:00)
[2024-01-09] MEDS: MAGNESIUM OXIDE 400MG TAB (MAG-OX) PO SCH (09:06)
[2024-01-09] MEDS: MAG SULF 1GM/100ML (MAG RUN) 1 GM in IV 1 EA IV ONE (09:06)
[2024-01-09 12:36] LABS: BLOOD UREA NITROGEN 10 MG/DL (9-23); CARBON DIOXIDE LEVEL 30 MMOL/L (20-31); CHLORIDE LEVEL 95 MMOL/L (98-107); CREATININE FOR GFR 0.32 MG/DL (0.70-1.30); GLOMERULAR FILTRATION RATE > 60.0 (>49); GLUCOSE, FASTING 233 MG/DL (74-106); SODIUM LEVEL 131 MMOL/L (136-145)
[2024-01-09] MEDS: CALCIUM/VITAMIN D 500 MG TAB PO SCH (12:47)
[2024-01-09 18:48] LABS: BLOOD UREA NITROGEN 11 MG/DL (9-23); CALCIUM LEVEL 7.6 MG/DL (8.3-10.6); CARBON DIOXIDE LEVEL 28 MMOL/L (20-31); CHLORIDE LEVEL 97 MMOL/L (98-107); CREATININE FOR GFR 0.44 MG/DL (0.70-1.30); GLOMERULAR FILTRATION RATE > 60.0 (>49); GLUCOSE, FASTING 221 MG/DL (74-106); POTASSIUM SERUM 3.2 MMOL/L (3.5-5.1); SODIUM LEVEL 132 MMOL/L (136-145)
[2024-01-10 00:58] LABS: BLOOD UREA NITROGEN 13 MG/DL (9-23); CALCIUM LEVEL 7.3 MG/DL (8.3-10.6); CARBON DIOXIDE LEVEL 30 MMOL/L (20-31); CHLORIDE LEVEL 103 MMOL/L (98-107); CREATININE FOR GFR 0.44 MG/DL (0.70-1.30); GLOMERULAR FILTRATION RATE > 60.0 (>49); GLUCOSE, FASTING 212 MG/DL (74-106); POTASSIUM SERUM 3.1 MMOL/L (3.5-5.1); SODIUM LEVEL 138 MMOL/L (136-145)
[2024-01-10] MEDS: POTASSIUM CHLORIDE 10MEQ SR TABLET PO ONE ×2 (04:56→08:46)
[2024-01-10 05:19] VITALS: BP 99/61; TEMP 97.2; O2SAT 96
[2024-01-10 08:00] VITALS: BP 98/50
[2024-01-10 08:00] LABS: BLOOD UREA NITROGEN 10 MG/DL (9-23); CALCIUM LEVEL 7.2 MG/DL (8.3-10.6); CARBON DIOXIDE LEVEL 32 MMOL/L (20-31); CHLORIDE LEVEL 101 MMOL/L (98-107); CREATININE FOR GFR 0.35 MG/DL (0.70-1.30); GLOMERULAR FILTRATION RATE > 60.0 (>49); GLUCOSE, FASTING 128 MG/DL (74-106); POTASSIUM SERUM 3.2 MMOL/L (3.5-5.1); SODIUM LEVEL 138 MMOL/L (136-145)
[2024-01-10] MEDS: MAG SULF 1GM/100ML (MAG RUN) 1 GM in IV 1 EA IV ONE ×2 (08:47→18:09)
[2024-01-10] MEDS: CALCIUM GLUCONATE 1,000 MG in D5W MINI-BAG PLUS 100 ML IV ONE (09:57)
[2024-01-10 12:23] LABS: BLOOD UREA NITROGEN 9 MG/DL (9-23); CARBON DIOXIDE LEVEL 26 MMOL/L (20-31); CHLORIDE LEVEL 98 MMOL/L (98-107); CREATININE FOR GFR 0.32 MG/DL (0.70-1.30); GLOMERULAR FILTRATION RATE > 60.0 (>49); GLUCOSE, FASTING 138 MG/DL (74-106); POTASSIUM SERUM 3.1 MMOL/L (3.5-5.1); SODIUM LEVEL 134 MMOL/L (136-145)
[2024-01-10 14:00] VITALS: BP 92/58; TEMP 98.1; O2SAT 100
[2024-01-10] MEDS: SODIUM CHLORIDE 1 GM TAB PO SCH (14:09)
[2024-01-10] MEDS: POTASSIUM CHLORIDE 10MEQ SR TABLET PO SCH (15:53)
[2024-01-10] MEDS: SANTYL OINT 30GM TOP SCH (15:54)
[2024-01-10 16:04] LABS: BLOOD UREA NITROGEN 8 MG/DL (9-23); CALCIUM LEVEL 7.8 MG/DL (8.3-10.6); CARBON DIOXIDE LEVEL 28 MMOL/L (20-31); CHLORIDE LEVEL 101 MMOL/L (98-107); CREATININE FOR GFR 0.36 MG/DL (0.70-1.30); GLOMERULAR FILTRATION RATE > 60.0 (>49); GLUCOSE, FASTING 134 MG/DL (74-106); POTASSIUM SERUM 3.9 MMOL/L (3.5-5.1); SODIUM LEVEL 134 MMOL/L (136-145)
[2024-01-10 20:19] VITALS: BP 90/58; TEMP 97.3; O2SAT 97
[2024-01-10 21:00] VITALS: BP 90/58
[2024-01-10] MEDS: ACETAMINOPHEN TAB 650MG DOSE (2X325MG) PO PRN (22:22)
[2024-01-10] MEDS: CALCIUM/VITAMIN D 500 MG TAB PO SCH (22:23)
[2024-01-11 00:06] LABS: BLOOD UREA NITROGEN 10 MG/DL (9-23); CALCIUM LEVEL 7.2 MG/DL (8.3-10.6); CARBON DIOXIDE LEVEL 28 MMOL/L (20-31); CHLORIDE LEVEL 103 MMOL/L (98-107); CREATININE FOR GFR 0.39 MG/DL (0.70-1.30); GLOMERULAR FILTRATION RATE > 60.0 (>49); GLUCOSE, FASTING 148 MG/DL (74-106); POTASSIUM SERUM 4.5 MMOL/L (3.5-5.1); SODIUM LEVEL 136 MMOL/L (136-145)
[2024-01-11 05:20] VITALS: BP 127/79; TEMP 97.2; O2SAT 99
[2024-01-11] MEDS ORDERED: LEVO1TAB40 PO (10:42)
[2024-01-11] MEDS ORDERED: RISATAB3 PO (10:42)
[2024-01-11] MEDS ORDERED: PRED10TA2 PO (10:42)
[2024-01-11] MEDS ORDERED: PRIL20TA2 PO (10:43)
[2024-01-11] MEDS ORDERED: TIOT18INH INH (10:43)
[2024-01-11] MEDS ORDERED: CARA1TAB6 PO (10:43)
[2024-01-11] MEDS ORDERED: VENTAER INH (10:43)
[2024-01-11] MEDS ORDERED: THIA100TA PO (10:47)
[2024-01-11] MEDS ORDERED: FOLI1TAB11 PO (10:47)
[2024-01-11] MEDS ORDERED: Multivitamins PO (10:47)
[2024-01-11] MEDS ORDERED: MAGN400T2 PO (10:47)
[2024-01-11] MEDS ORDERED: CALCD50TA PO (10:47)
[2024-01-11] MEDS ORDERED: LEVO25TA5 PO (10:47)
[2024-01-11] MEDS ORDERED: SANT250O8 TOP (10:47)
[2024-01-11] MEDS ORDERED: DELUMIS2 XX (10:48)
[2024-01-11] MEDS ORDERED: SELF1KIT MC (10:50)
[2024-01-11] MEDS ORDERED: MIDO5TA PO (10:50)
[2024-01-11] MEDS ORDERED: SODI1TAB12 PO (10:51)
[2024-01-11] MEDS: LevoFLOXacin 750 MG TABLET PO SCH (11:03)
[2024-01-11] MEDS: CALCIUM GLUCONATE 1,000 MG in D5W MINI-BAG PLUS 100 ML IV ONE (12:08)
[2024-01-11] MEDS: predniSONE 50 MG TAB PO SCH (12:08)
== END 2024-01-11 14:42 | disposition home health service (06) | DRG 640 ==
LOC: EDBD 10:35 → M ED 10:35 → M ED INP 13:27 → ENRESERV 15:33 → M MSPAV 16:14
PROVIDERS: ADMIT General Practice; ATTEND General Practice
DX: E87.1 Hypo-osmolality and hyponatremia (principal); E43 Unspecified severe protein-calorie malnutrition; L89.323 Pressure ulcer of left buttock, stage 3; J44.1 Chronic obstructive pulmonary disease with (acute) exacerbation; R65.10 Systemic inflammatory response syndrome (SIRS) of non-infectious origin without acute organ dysfunction; R64 Cachexia; Z68.1 Body mass index [BMI] 19.9 or less, adult; K70.9 Alcoholic liver disease, unspecified; I73.9 Peripheral vascular disease, unspecified; D53.9 Nutritional anemia, unspecified; M81.0 Age-related osteoporosis without current pathological fracture; E88.09 Other disorders of plasma-protein metabolism, not elsewhere classified; E86.0 Dehydration; K76.0 Fatty (change of) liver, not elsewhere classified; F10.10 Alcohol abuse, uncomplicated; I77.1 Stricture of artery; D69.6 Thrombocytopenia, unspecified; E83.42 Hypomagnesemia; R62.7 Adult failure to thrive; F41.9 Anxiety disorder, unspecified; R74.01 Elevation of levels of liver transaminase levels; E83.51 Hypocalcemia; E87.6 Hypokalemia; F17.210 Nicotine dependence, cigarettes, uncomplicated; Z66 Do not resuscitate; R29.6 Repeated falls; Z79.899 Other long term (current) drug therapy; Z91.119 Patient's noncompliance with dietary regimen due to unspecified reason; F32.A Depression, unspecified

== ENCOUNTER 2024-01-15 11:19 | Emergency (ER) | payer MEDICARE, MEDICAID ==
[~2024-01-15] VITALS: Ht 170.2 cm; Wt 40.2 kg
[~2024-01-15 11:19] MED LIST changes: +CALCD50TA PO; +CARA1TAB6 PO; +DELUMIS2 XX; +LEVO1TAB40 PO; +LEVO25TA5 PO; +MAGN400T2 PO; +MIDO5TA PO; +Multivitamins PO; +PRIL20TA2 PO; +RISATAB3 PO; +SANT250O8 TOP; +SELF1KIT MC; +SODI1TAB12 PO; +THIA100TA PO; +TIOT18INH INH
[2024-01-15 11:56] LABS: EOS % 0.3 % (0.0-3.0); HEMATOCRIT 31.2 % (42.0-52.0); HEMOGLOBIN 10.6 g/dl (13.5-17.5); LYMPH # 1.5 10^3/uL (1.5-5.0); LYMPH % 24.4 % (24.0-44.0); MONO % 16.3 % (2.0-8.0); NEUTROPHILS # 3.7 10^3/uL (1.5-8.5); NEUTROPHILS % 58.4 % (36.0-66.0); PLATELET COUNT, AUTOMATED 240 10^3/uL (150-450); RED BLOOD COUNT 3.12 10^6/uL (4.30-6.10); WHITE BLOOD COUNT 6.3 10^3/uL (4.0-10.0)
[2024-01-15 12:24] LABS: ETHYL ALCOHOL (ETHANOL) < 0.003 % (0.000-0.010)
[2024-01-15 12:26] LABS: BLOOD UREA NITROGEN 7 MG/DL (9-23); CALCIUM LEVEL 8.1 MG/DL (8.3-10.6); CARBON DIOXIDE LEVEL 30 MMOL/L (20-31); CHLORIDE LEVEL 100 MMOL/L (98-107); CREATININE FOR GFR 0.34 MG/DL (0.70-1.30); GLOMERULAR FILTRATION RATE > 60.0 (>49); GLUCOSE, FASTING 97 MG/DL (74-106); MAGNESIUM LEVEL 1.8 MG/DL (1.8-2.4); POTASSIUM SERUM 3.8 MMOL/L (3.5-5.1); SODIUM LEVEL 136 MMOL/L (136-145)
[2024-01-15 14:30] VITALS: O2SAT 99
[2024-01-15] MEDS: NS 1,000 ML IV ONE (14:56)
[2024-01-15 15:37] VITALS: BP 99/57
[2024-01-15 16:03] VITALS: TEMP 96.3
== END 2024-01-15 16:04 | disposition home or self-care (01) ==
LOC: M ED 11:19
DX: E86.0 Dehydration (principal); F10.10 Alcohol abuse, uncomplicated; F41.9 Anxiety disorder, unspecified; F32.A Depression, unspecified; F17.200 Nicotine dependence, unspecified, uncomplicated; J44.9 Chronic obstructive pulmonary disease, unspecified; Z79.899 Other long term (current) drug therapy